=== PATIENT | female | born 2005 | race Caucasian/White ===

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

== ENCOUNTER 2024-07-03 14:40 | Outpatient (CLI) | payer OTHER, SELFPAY ==
--- NOTE | ~2024-07-03 | XR_ITS ---
EXAMINATION: XR chest 2V Exam Date/Time: 07/03/2024 14:43 TRACK HELPER HISTORY: R05.9 - Cough, unspecified Comparison: 12/09/2023. RESULT: Lines, tubes, and devices: None. Lungs and pleura: Clear. Cardiomediastinal silhouette: Stable. Other: No acute osseous or upper abdominal finding. IMPRESSION: No acute cardiopulmonary process. Reviewed, dictated and finalized at location K. K HELPER
== END 2024-07-03 14:41 | disposition home or self-care (01) ==
LOC: GOSHIMG 14:41
PROVIDERS: PCP Internal Medicine; Visit Provider Internal Medicine
DX: R05.9 Cough, unspecified (principal)
CPT/HCPCS: 71046

== ENCOUNTER 2024-07-03 14:58 | Outpatient (CLI) | payer OTHER, SELFPAY ==
[2024-07-03 18:56] LABS: Basophils Absolute Auto 0.1 K/mm3 (0.0-0.1); Basophils Percent Auto 0.8 % (0.2-1.2); Eosinophils Absolute Auto 0.1 K/mm3 (0-0.3); Eosinophils Percent Auto 1.9 % (0-4.4); Hematocrit 41.1 % (37.0-47.0); Hemoglobin 13.9 g/dL (12.0-15.0); Immature Granulocyte Absolute 0.01 K/mm3 (0.00-0.031); Immature Granulocyte Percent A 0.1 % (0-0.5); Lymphocytes Absolute Auto 1.92 K/mm3 (0.9-3.2); Lymphocytes Percent Auto 25.6 % (18.3-44.2); Mean Corpuscular HGB Conc 33.8 g/dl (32-36); Mean Corpuscular Hemoglobin 30.3 pg (26-34); Mean Corpuscular Volume 89.7 fl (80-100); Mean Platelet Volume 10.3 fl (7.4-10.4); Monocytes Absolute Auto 0.7 K/mm3 (0.1-0.6); Monocytes Percent Auto 9.2 % (2.6-8.5); Neutrophils Absolute Auto 4.7 K/mm3 (1.3-6.7); Neutrophils Percent Auto 62.4 % (45.5-73.1); Platelet Count Result 221 k/mm3 (150-375); Red Blood Count 4.58 M/mm3 (4.2-5.4); Red Cell Distribution Width 12.6 % (11.5-14.5); White Blood Count 7.5 K/mm3 (4.5-10.0)
[2024-07-03 19:22] LABS: Influenza A QL RT-PCR Negative (Negative); Influenza B QL RT-PCR Negative (Negative); RSV RNA, RT-PCR Negative (Negative); SARS-CoV-2 RNA PCR Negative (Negative)
== END 2024-07-03 14:59 | disposition home or self-care (01) ==
LOC: ANHGOSHLAB 15:00
PROVIDERS: PCP Internal Medicine; Visit Provider Internal Medicine
DX: R05.9 Cough, unspecified (principal); R50.9 Fever, unspecified
CPT/HCPCS: 36415; 85025; 87637

== ENCOUNTER 2024-12-19 10:16 | Outpatient (CLI) | payer OTHER, SELFPAY ==
--- OUTSIDE RECORDS SUMMARY | 2024-12-19 10:35 | XMS_ITS ---
Author Organization [facility] Address [address] [place] [address] Care Team Providers Care Stock Control Supervisor Name Role Phone Claire Rowan Primary Care Provider REASON FOR VISIT f/u chico Encounters Encounter Location Date Provider Diagnosis [facility] - Claire Rowan [address] [place] [address] 09/29/2024 Claire Rowan Plan Of Treatment No Information Progress Notes * Wilma WORLEYDOB:2005 (19 yo F)Acc No.[id number]:09/29/2024 Progress Notes Patient: Wilma ZHOU Provider: Nam Rowan MD :2005 A ge:19 Y S ex:Female Date:09/29/2024 Address:[address] [place] [address] Nam Gabriel [id number] Subjective: * Chief Complaints: * 1 . F/u chico. * Medical History: Objective: * Vitals: Assessment: Plan: * Treatment: * Billing Information: * Visit Code: * Procedure Codes: * Electronic signature of Geovanny Rowan MD on 12/19/2024 at 10:35 AM CDT Sign off status: Pending * Provider: Nam Rowan MD Date: 09/29/2024 Generated for Yasmeen pisano/Keren/eTransmitting on: 12/19/2024 10:35 AM CDT
--- OUTSIDE RECORDS SUMMARY | 2024-12-19 10:35 | XMS_ITS | Clinical Summary ---
Author Organization [facility] Address [address] [place] [address] Care Team Providers Care Portfolio Specialist Name Role Phone Iker Baum MD Primary Care Provider [phone] Source Comments [facility],non-owned Affiliates and Associated Physician Practices is amultiple site organization consisting of ambulatory clinics and hospital sitesin [place], [place], [place] and [place]. This disclosure is being madepursuant to the Care Everywhere program and may not contain all information available regarding this patient. Last updated 18.[facility] Allergies No known active allergies Medications * Be aware that medications may not be up to date on this document. Alwaysverify current medications with the patient. Vitamin D, Cholecalciferol , 1000 UNITS Take 1 Tab by mouth every 7 days Active rizatriptan, disintegrating, (MAXALT EXHAUSTER ENGINEER) 5 MG tablet Take 5 mg by mouth daily as needed - may repeat one time for Migraine No more than 30 mg in a 24 hour period. Active cetirizine (ZYRTEC) 10 MG tablet Take 10 mg by mouth once daily Active riboflavin 100 MG tablet Take 200 mg by mouth once daily Active ferrous sulfate 325 (65 FE) MG tabletIndicatio ns:Chronic daily headache Take 1 tablet by mouth 2 times daily with morning and evening meal Avoid dairy for 15-30 minutes. Can take Tums for abdominal discomfort. 60 tablet 2 8 Active amphetamine-dex troamphetamine XR 24hr (ADDERALL XR) 10 MG capsule Take 10 mg by mouth once daily 2 Active norethindrone (ORTHO MICRONOR; NOR-QD; JIHAN; DANIE; LEROY-BE; ABHISHEK; JOLIVETTE) 0.35 MG tablet Take 1 tablet by mouth once daily 2 Active Motegrity 2 MG tablet Take 1 (one) tablet by mouth once daily 2 Active Nurtec 75 MG tablet 2 Active DentaGel 1.1 % gel USE DIRECTED TO BRUSH TWICE A DAY 2 Active Active Problems Patient Care Coordination No te Formatting of this note migh t be different from the original. Do you have any cultural preferences or concerns? 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 1. Keep headache diary 2. Maintain active lifestyle - refer to PT to address neck muscle tightness, improve endurance, dizziness etc 3. Eat healthy diet, and do not skip meals 4. Drink plenty of water, and avoid caffeine regularly. 5. Sleep: 1. Maintain good sleep routine. 2. Avoid distractions at bedtime such as TV, computer. 3. Get at least 8-10 hours of sleep nightly 4. Start ferrous sulfate 325 mg twice daily 5. Trial of OTC Melatonin (1-3 mg) at bedtime as discussed 6. Do not use pain medication (such as Tylenol, Ibuprofen) more than 2-3 times/week in order to avoid medication overuse headaches 7. Can use Rizatriptan (Maxalt) 5 mg tabs for intense migrainous headache. May repeat in 2-4 hours if no relief. No more than 2 tabs in 24 hours. 8. Continue with Toprol as prescribed. Take regularly and as prescribed. 9. Can try supplements such as magnesium, continue other supplements. 10. Continue seeing therapist to address possible underlying anxiety. 11. Call in 4-6 weeks with update regarding headaches, sooner for concerns. Can also follow up with Dr. Jones - per parent/patient preference. Hypermobility syndrome 11/19/2016 Immunizations Immunization Administration Dates Next Due Covid Linkovery primary Monoval ent 12+ yr 0.3ml 08/31/2021 Covid Linkovery primary monoval ent 12+ yr 0.3mL Purple cap 08/10/2021 DTAP/HEP B/IPV 2004,2004,2004 DTAP/IPV 12/23/2009 DTaP VACCINE IM (6wk-6yrs) 01/06/2006 HEP A PEDS 2 DOSE 06/01/2007,06/07/2006 HEP B VACCINE 2004 HIB VACCINE 09/02/2005, 5,2004,07/15 MENINGOCOCCAL ACWY MENVEO 02/19/2016 MMR VACCINE 12/23/2009,09/02/2005 PNEUMOCOCCAL PCV7 CONJ, PEDS 09/02/2005, 2004,2004,07/15 TDAP, HISTORIC VACCINE 04/18/2015 VARICELLA 02/11/2016,12/23/2009 Family History Medical History Relation Name Comments Multiple Sclerosis Maternal Aunt Scleroderma Paternal Aunt Autoimmune Disease Neg Hx other deana n scleroderma Relation Name Status Comments Maternal Aunt Alive Paternal Aunt Alive Social History Tobacco Use Types Packs/Day Years Used Date Smoking Tobacco: Never Smokeless Tobacco: Never Tobacco Cessation:Counseling Given: No Comments No Sex and Gender Information Value Date Recorded Sex Assigned at Not on file Legal Sex Female 3:30 PM CDT Gender Identity Not on file Sexual Orientation Not on file Last Filed Vital Signs Vital Sign Reading Time Taken Comments Blood Pressure 112/70 06/16/2022 3:30 PM DEPUTY FELONY CLERK Pulse 88 06/16/2022 3:30 PM DEPUTY FELONY CLERK Temperature 36.7 C (98.1 F) 06/16/2017 3:13 PM DEPUTY FELONY CLERK Respiratory Rate 20 06/16/2022 3:30 PM DEPUTY FELONY CLERK Oxygen Saturation 98% 06/16/2017 3:13 PM DEPUTY FELONY CLERK Inhaled Oxygen Concentration - - Weight 68.9 kg (151 lb 14.4 oz) 06/16/2022 3:30 PM DEPUTY FELONY CLERK Height 172.4 cm (5' 7.87 ) 06/16/2022 3:30 PM CS T Body Mass Index 23.18 06/16/2022 3:30 PM DEPUTY FELONY CLERK Plan of Treatment Health Maintenance Due Date Last Done Comments HIV SCREENING 2019 HPV VACCINE (1 - 3-dose series) 2019 CHLAMYDIA/GONORRHEA SCREENING 2020 MENINGOCOCCAL (Group B) VACCINE SHARED DECISION-MAKING (1 of 2 - Standard) 2020 HEPATITIS C SCREENING 05/09/2022 COVID-19 VACCINE ( - season) 2024 08/31/2021, 08/10/2021 DEPRESSION SCREENING 08/09/2024 INFLUENZA VACCINE (Season Ended) 2025 DTAP/TDAP/TD VACCINES (7 - Td or Tdap) 04/18/2025 04/18/2015, 12/23/2009, 01/06/2006, Additional history exists ZOSTER VACCINE (1 of 2) 2054 HEPATITIS B VACCINE Completed 2004, 2004, 2004, Additional history exists HIB VACCINE Completed 09/02/2005, 01/2005, 2004, Additional history exists PNEUMOCOCCAL VACCINE Completed 09/02/2005, 2004, 2004, Additional history exists MENINGOCOCCAL GROUPS A/C/Y/W VACCINE Aged Out 02/19/2016 No longer eligible based on patient's age to complete this topic Insurance [facility] Care Teams Portfolio Specialist Relationship Specialty Start Date End Date Iker Baum MD [address] [place] [address] PCP - General Internal Medicine 01/20/22
--- OUTSIDE RECORDS SUMMARY | 2024-12-19 10:35 | XMS_ITS | Clinical Summary ---
Author Organization [facility] Address [facility] [place] [address] Care Team Providers Care Plant Floor Automation Manager Name Role Phone Iker Baum MD Primary Care Provider [phone] Allergies No known active allergies Medications topiramate (TOPAMAX) 50 mg tablet 9 Active montelukast (SINGULAIR) 10 mg tablet Take 10 mg by mouth daily 0 Active norethindrone (MICRONOR) 0.35 mg tabletIndications : Contraception Take one pill by mouth every day on time 84 tablet 3 0 Active metFORMIN XR (GLUCOPHAGE XR) 500 mg 24 hr tablet Take 500 mg by mouth 0 Active ergocalciferol (VITAMIN D) 50,000 unit capsule 1 Active dextroamphetamine -amphetamine XR (ADDERALL XR) 10 mg 24 hr capsule Take by mouth daily 0 Active cetirizine (ZyrTEC) 10 mg tablet Take 10 mg by mouth daily Active UNABLE TO FIND Take 1 each by mouth daily Med Name: Actalin Active FLUoxetine (PROzac) 20 mg tablet TAKE 1 TABLET BY MOUTH EVERY DAY 90 tablet 1 Active Additional Information Patient not taking.Reported on 09/07/2022 Motegrity 2 mg tablet TAKE 1 TABLET BY MOUTH EVERY DAY 30 tablet 2 Active DentaGeL 1.1 % gel 2 Active Nurtec ODT tablet,disintegra ting 2 Active sodium chloride 1 gram tabletIndications :Persistent postural-perceptu al dizziness Take 1 tablet (1 g total) by mouth 3 (three) times a day 90 tablet 11 3 Active Active Problems Problem Noted Date Diagnosed Date Palpitations 09/07/2022 Irritable bowel syndrome with constipation 02/14 Carbohydrate intolerance 10/11/2019 Overview (10/11/2019): Partial lactase deficiency Chronic migraine without aur a without status migrainosus, not intractable 05/08/2018 Persistent postural-perceptual dizziness 018 Vestibular migraine 05/03/2018 Functional dyspepsia 02/21/2018 COVID-19 Unvaccinated Overview (01/16/2021): As of 01/16/21 Resolved Problems Problem Noted Date Diagnosed Date Resolved Date Imbalance 05/03/2018 04/13/2019 Abdominal pain, epigastric 03/23/2018 1 Overview (03/23/2018): Added automatically from request for surgery [id number] Surgical History Surgery Date Site/Laterality Comments DENTAL SURGERY With Nitrous- pt was in bed all day and night after having the 1st time; the 2nd time the dentist gave less Nitrous and pt with improved tolerance. UPPER GASTROINTESTINAL ENDOSCOPY 03/09/2018 - 04/08/2018 Medical History Medical History Date Comments Chronic daily headache Last Asse ssment & Plan: Chronic daily headache (mixed tension type and some migrainous headaches), worsened by several lifestyle issues such as diet, sleep disturbances, prior concussion, neck muscle tightness, increased screen time, psychosocial stressors. 1. Keep headache diary 2. Maintain active lifestyle - refer to PT to address neck muscle tightness, improve endurance, dizziness etc 3. Eat Hypermobility arthralgia Livedo reticularis Menses, irregular Pes planus Lupus anticoagulant positive Dizziness Anxiety Adhd on ritalin Gallbladder disorder hydascan wi th 15% function Abdominal pain with bloating af ter eating Sleep disorder difficult sleepi ng Seasonal allergies Acne PCOS (polycystic ovarian syndrome) on Metformin per electrician yard COVID-19 Unvaccinated As of 01/16 Family History Medical History Relation Name Comments Colon polyps Father Diabetes Father Cancer Maternal Grandfather Diabetes Maternal Grandmother Hearing loss Maternal Grandmother Migraines Maternal Grandmother Thyroid disease Maternal Grandmother Hearing loss Mother Irritable bowel syndrome Mother Thyroid disease Mother Thyroid disease Mother's Sister Arthritis Other 1 Family history of Arthritis; Heart disease Other 2 Family history of Heart problems; Cancer Other 3 Family history of Cancer; Other Other 4 Family history of Kidney problems (stones); Stroke Other 5 Family history of Stroke; Diabetes type II Other 6 Family hist ory of Diabetes mellitus type 2; Diabetes Paternal Grandfather Heart disease Paternal Grandfather Thyroid disease Paternal Grandfather Relation Name Status Comments Father Maternal Grandfather Maternal Grandmother Mother Mother's Sister Other 1 Other 2 Other 3 Other 4 Other 5 Other 6 Paternal Grandfather Social History Tobacco Use Types Packs/Day Years Used Date Smoking Tobacco: Never Smokeless Tobacco: Never Alcohol Use Standard Drinks/Week Comments No 0 (1 standard drink = 0.6 oz pur e alcohol) Comments No Sex and Gender Information Value Date Recorded Sex Assigned at Not on file Legal Sex Female 11:29 PM OPTICS TECHNICAL OFFICER Gender Identity Female 02/18/2021 2:48 PM CDT Sexual Orientation Not on file History Length Weight Head Circum Date/Time Gestation Age D/C Weight APGARs Delivery Method Feeding 5 lb 5 oz (2.41 kg) 2004 36 wks Obstetrics History Para Term AB IAB SAB Ectopic Multiple Livin g Live Births 0 0 0 0 0 0 0 0 0 0 0 Last Filed Vital Signs Vital Sign Reading Time Taken Comments Blood Pressure 125/81 09/07/2022 1:58 PM OPTICS TECHNICAL OFFICER Pulse 85 09/07/2022 1:58 PM OPTICS TECHNICAL OFFICER Temperature 36.5 C (97.7 F) 02/25/2021 8:14 AM CDT Respiratory Rate 16 01/20/2021 3:00 PM CDT Oxygen Saturation 98% 09/07/2022 1:58 PM OPTICS TECHNICAL OFFICER Inhaled Oxygen Concentration - - Weight 67.6 kg (149 lb) 09/07/2022 1:58 PM OPTICS TECHNICAL OFFICER Height 167.6 cm (5' 6 ) 09/07/2022 1:58 PM OPTICS TECHNICAL OFFICER Body Mass Index 24.05 09/07/2022 1:58 PM OPTICS TECHNICAL OFFICER Plan of Treatment Health Maintenance Due Date Last Done Comments Depression Screening 2004 Hepatitis C Screening 2004 HPV Vaccines (1 - 3-dose series) 2019 Meningococcal B Vaccine (1 o f 2 - Standard) 2020 Regular Well Visit/Exam 18-64 2022 Covid-19 Vaccine (3 - 2023-2 5 season) 2024 08/31/2021, 08/10/2021 Influenza Vaccine (#1) 2024 DTaP/Tdap/Td Vaccine (7 - Td or Tdap) 04/18/2025 04/18/2015, 12/23/2009, 01/06/2006, Additional history exists Hepatitis B Screening Completed 2004 , 2004, 2004, Additional history exists Pneumococcal vaccine <65 Completed 006, 2004, 2004, Additional history exists Varicella Vaccines Completed 02/11/2016, 12/23/2009 Meningococcal Vaccine Completed 02/18/2022, 016 Insurance [facility] [place] [address] [place] [address] [facility] [employer] Care Teams Plant Floor Automation Manager Relationship Specialty Start Date End Date Iker Baum MD [address] [place] [address] PCP - General Internal Medicine 09/01/19
--- OUTSIDE RECORDS SUMMARY | 2024-12-19 10:35 | XMS_ITS | Patient Health Record ---
Author Organization [facility] Address [address] [address] Care Team Providers Care Drum Builder Name Role Phone Claire Rowan Primary Care Provider Allergies Allergen (clinical drug ingredient) Drug/Non Drug Allergy documented on EMR Reaction Allergy Type Onset Date Status Fragrances Unknown Allergy Active Cats Unknown Allergy Active Dust Mite Mixed Allergen Ext Unknown Drug Allergy Active Results Component Value Reference Range Notes ACTH, PLASMA (Not yet review ed by provider) Interpretation: Performing Lab:ORTIZ, [facility], [address] [facility] , [place], [address] Bijan Gracia M.D.,PhD Notes/Report: FASTING:YES FASTING: YES THYROID PEROXIDASE ANTIBODIE S (Not yet reviewed by provider) Interpretation: Performing Lab:CB, [facility], [address] [place] [address], [address] [place] Notes/Report: FASTING:YES FASTING: YES THYROID PEROXIDASE ANTIBODIES 1 <9 IU/mL TESTOSTERONE, FREE (DIALYSIS ) AND TOTAL,MS (Not yet reviewed by provider) Interpretation: Performing Lab:Z3E, [facility], [address] [place] [address], [address], [place], [address] Nichelle Levy MD,PhD Notes/Report: FASTING:YES FASTING: YES TESTOSTERONE, TOTAL, MS 35 2-45 ng/dL For additional information, please refer to https://education.[employer].com/faq/XLR824 (This link is being provided for informational/educational purposes only.) (Note) This test was developed and its analytical performance characteristics have been determined by [employer]. It has not been cleared or approved by the FDA. This assay has been validated pursuant to the CLIA regulations and is used for clinical purposes. TESTOSTERONE, FREE 8 0.1-6.4 pg/mL (Note) This test was developed and its analytical performance characteristics have been determined by [employer]. It has not been cleared or approved by the FDA. This assay has been validated pursuant to the CLIA regulations and is used for clinical purposes. [facility] [address] [address],[address] [facility] [address] Nichelle Levy MD, PhD COMPREHENSIVE METAB[facility]IC [facility] Reviewed date:09/09/2024 05:35:28 PM Interpretation: Performing Lab:[facility], [address] [place], [address] Andie Burnett MD Notes/Report: FASTING:YES FASTING: YES VITAMIN D, 25-HYDROXY, LC/MS /MS Reviewed date:09/09/2024 05:35:28 PM Interpretation: Performing Lab:[facility], [address], [place], [address] Andie Burnett MD Notes/Report: FASTING:YES FASTING: YES T3, FREE Reviewed date:09/09/2024 05:35:28 PM Interpretation: Performing Lab:[facility], [address], [place], [address] Andie Burnett MD Notes/Report: FASTING:YES FASTING: YES CORTISOL, TOTAL Reviewed date:09/09/2024 05:35:28 PM Interpretation: Performing Lab:[facility], [address], [place], [address] Andie Burnett MD Notes/Report: FASTING:YES FASTING: YES DHEA SULFATE Reviewed date:09/09/2024 05:35:28 PM Interpretation: Performing Lab:[facility], [address], [place], [place], [address] Andie Burnett MD Notes/Report: FASTING:YES FASTING: YES FERRITIN Reviewed date:09/09/2024 05:35:28 PM Interpretation: Performing Lab:KS, [facility], [address], [place], [address] Andie Burnett MD Notes/Report: FASTING:YES FASTING: YES HEMOGLOBIN A1c Reviewed date:09/09/2024 05:35:28 PM Interpretation: Performing Lab[facility], [address] [place], [address] KarenArgenis Burnett Notes/Report: FASTING:YES FASTING: YES INSULIN Reviewed date:09/09/2024 05:35:28 PM Interpretation: Performing Lab:[facility], [address], [place], [address] Andie Burnett MD Notes/Report: FASTING:YES FASTING: YES MAGNESIUM Reviewed date:09/09/2024 05:35:28 PM Interpretation: Performing Lab:[facility], [address], [place], [address] Andie Burnett MD Notes/Report: FASTING:YES FASTING: YES CBC (INCLUDES DIFF/PLT) Reviewed date:09/09/2024 05:35:28 PM Interpretation: Performing Lab:[facility], [address], [place], [address] Andie Burnett MD Notes/Report: FASTING:YES FASTING: YES VITAMIN B12/FOLATE, SERUM PA GERARD Reviewed date:09/09/2024 05:35:28 PM Interpretation: Performing Lab:[facility], [address], [place], [address] Andie Burnett MD Notes/Report: FASTING:YES FASTING: YES IRON AND TOTAL IRON BINDING CAPACITY Reviewed date:09/09/2024 05:35:28 PM Interpretation: Performing Lab:[facility], [address], [place], [address] Andie Burnett MD Notes/Report: FASTING:YES FASTING: YES LIPID PANEL Reviewed date:09/09/2024 05:35:29 PM Interpretation: Performing Lab:[facility], [address], [place], [address] Andie Burnett MD Notes/Report: FASTING:YES FASTING: YES T4, FREE Reviewed date:09/09/2024 05:35:29 PM Interpretation: Performing Lab:[facility], [address] [facility], [place], [address] Andie Burnett MD Notes/Report: FASTING:YES FASTING: YES TSH Reviewed date:09/09/2024 05:35:29 PM Interpretation: Performing Lab:[facility], [address] [facility], [place], [address] Andie Burnett MD Notes/Report: FASTING:YES FASTING: YES DEXAMETHASONE (Not yet revie wed by provider) Interpretation: Performing Lab:[facility],, [address] [place], [address] Denisha Pinon MD,PhD,RAUL Notes/Report: DEXAMETHASONE 155 Reference Ranges for Dexamethasone: Baseline: Less than 20 ng/dL 1 mg dexamethasone overnight: 180-550 ng/dL (8:00-10:00 AM) This test was developed and its analytical performance characteristics have been determined by [employer]. It has not been cleared or approved by FDA. This assay has been validated pursuant to the CLIA regulations and is used for clinical purposes. CORTISOL, TOTAL (Not yet rev iewed by provider) Interpretation: Performing Lab:JORGE [facility], [address] [place] [address], [address] [place] Notes/Report: Reason For Referral No Information Medications Medication SIG (Take, Route, Fr equency, Duration) Notes Start Date End Date Status Adderall 5 MG 1 tablet Orally Twice a day Active Claritin 10 MG 1 tablet Orally Once a day Active Norethindrone 0.35 MG 1 tablet Orally Once a day Active dexAMETHasone 1 MG 1 tablet Orally at 1 0 pm night before 8 am cortisol for 1 days 08/25/2024 Active Problems Problem Type SNOMED Code ICD Code Onset Dates Problem Status W/U Status Risk Notes Problem Vitamin D deficiency (98062955) Vitamin D deficiency, unspecified (E55.9) Active confirmed Problem Obesity (447814943) Obesity, unspecified (E66.9) Active confirmed Problem Non-toxic goiter (411774918) Nontoxic goiter, unspecified (E04.9) Active confirmed Problem Polycystic ovary syndrome (disorder) (378638287) Polycystic ovarian syndrome (E28.2) Active confirmed Vital Signs Heart Rate 90 /min 08/25/2024 SpO2: 98% Blood pressure diastolic 75 mm Hg 08/25/2024 SpO 2: 98% Height 66 in 08/25/2024 SpO2: 98% Blood pressure systolic 128 mm Hg 08/25/2024 SpO2 : 98% Weight 172.6 lbs 08/25/2024 SpO2: 98% BMI 27.86 kg/m2 08/25/2024 SpO2: 98% Encounters Encounter Location Date Provider Diagnosis [facility] [place] [address] [place] [address] 08/25/2024 [place] [facility] Polycystic ovarian syndrome E28.2 ; Abnormal weight gain R63.5 ; Overweight E66.3 ; Vitamin D deficiency, unspecified E55.9 ; Encounter for screening for lipoid disorders Z13.220 ; Other fatigue R53.83 ; Nontoxic goiter, unspecified E04.9 ; Obesity, unspecified E66.9 and Dietary counseling and surveillance Z71.3 [facility] [employer] [address] [place] [address] 09/29/2024 Claire Rowan Assessments Encounter Date Diagnosis (ICD Code) Assessment Notes Treatment Notes Treatment Clinical Notes Section Notes 08/25/2024 Abnormal weight gain (ICD-10 - R63.5) 08/25/2024 Polycystic ovarian syndrome (ICD-10 - E28.2) 08/25/2024 Overweight (ICD-10 - E66.3) 08/25/2024 Vitamin D deficiency, unspecified (ICD-10 - E55.9) 08/25/2024 Encounter for screening for lipoid disorders (ICD-10 - Z13.220) 08/25/2024 Other fatigue (ICD-10 - R53.83) 08/25/2024 Nontoxic goiter, unspecified (ICD-10 - E04.9) 08/25/2024 Obesity, unspecified (ICD-10 - E66.9) 08/25/2024 Dietary counseling and surveillance (ICD-10 - Z71.3) 08/25/2024 Other Assessment and Plan: Polycystic Ovary Syndrome (PCOS)Continue norethindrone as currently prescribedOrder fasting hormone panel to assess hormonal imbalancesCheck insulin levels given history of high insulin and weight gainDiscuss potential iodine supplementation (300 micrograms) pending lab resultsConsider recommending Purely Holistic supplement from [employer] (soy-free, GMO-free, [id number]) based on lab results Suspected HypercortisolismOrder dexamethasone suppression test to evaluate cortisol levelsInstruct patient to take dexamethasone at 10 PM and complete lab work the following morning, providing written instructions for the testEvaluate cortisol levels post-test to confirm diagnosis Sleep DisturbancePlan to reassess sleep hygiene after cortisol evaluation, considering chronic sleep issues Anxiety and DepressionReassess mental health status after cortisol evaluationCheck B12, Vitamin D, iron, and ferritin levels to identify potential causes of fatigue and vitamin deficiencies Gallbladder DiseaseSchedule follow-up with surgeon in two weeks to discuss gallbladder ejection fraction of 4%Provide Autoimmune Protocol (AIP) diet information and recommend healthy fats like avocados and pistachiosAdvise avoidance of pork, brisket, and fatty foods to manage symptoms Chronic SinusitisNo specific plan discussed; continue monitoring symptoms GastritisNo specific plan discussed; continue monitoring symptoms Thyroid MonitoringOrder comprehensive thyroid panel and check serum iodine levels due to family history and potential iodine deficiencySchedule thyroid ultrasound [facility] to [facility] for heterogeneity and inflammation Follow-up:Schedule a follow-up appointment to review lab results and assess the response to interventionsEncourage patient to contact the clinic if any new or worsening symptoms occur Spent 15 minutes preventative counseling patient on dietary recommendations and changes in setting of hyperglycemia- need to restrict refined sugars and processed foods and incorporate up to 150 minutes of moderate level activity weekly. Spent 45 minutes preparing to see the patient (ex review of tests/chart), obtaining and / or reviewing separately obtained history, performing a medically appropriate examination and/or evaluation, counseling and educating the patient/family/caregiver, ordering medications, tests, or procedures, referring and communicating with other health healthcare prof, documenting clinical information in the electronic or other health record, independently interpreting results and communicating results to the patient/family/caregiver and care coordinating patient plan. Patient alert and oriented x 4 and aware of discussion noted above and in agreeance to plan in management of PCOS/weight gain, concern for hypercortisolism, obesity, fatigue, screening for lipids and vit D def. Plan Of Treatment Pending Test Test Name Order Date Ultrasound thyroid 08/25/2024 ACTH, PLASMA 09/08/2024 DEXAMETHASONE 09/13/2024 CORTISOL, TOTAL 09/13/2024 THYROID PEROXIDASE ANTIBODIES 09/08/2024 TESTOSTERONE, FREE (DIALYSIS) AND TOTAL, MS 09/08/2024 Insurance Providers Payer Name Payer Address Payer Phone Subscriber Number Group Number Insured Name Patient Relationship to Insured Coverage Start Date Coverage End Date [facility] [address] [place] [address] [id number] Wilma Encarnacion Self - patient is the insured Medical (General) History Medical History History ICD Code PCOS MCAS
--- OUTSIDE RECORDS SUMMARY | 2024-12-19 10:35 | XMS_ITS | Clinical Summary ---
Author Organization [facility] Address [address] [place] [phone] Phone Care Team Providers Care Clinical Staff Pharmacist Name Role Phone Iker Baum MD Primary Care Provider + Allergies Active Allergy Reactions Criticality Noted Date Comments Ciprofloxacin Other (See Comments) High 09/28/2022 CORE DRILL OPERATOR DOES NOT WANT PT TO TAKE THIS CLASS OF DRUGS Medications dextroamphetami ne-amphetamine (ADDERALL) 10 mg tablet Take 10 mg by mouth daily. In the morning Active NORETHINDRONE AC-ETH ESTRADIOL ORAL Take by mouth. At bedtime Active hyoscyamine sulfate 0.125 mg tablet Take 1 Tablet (0.125 mg) by mouth 4 times daily as needed for abdomnial pain. 14 Tablet 03/15/2023 7:41 PM CDT 3 Active ondansetron (ZOFRAN ODT) 4 mg Tablet, Rapid Dissolve Take 1 Tablet (4 mg) by mouth every 6 hours as needed for nausea and vomiting. 14 Tablet 03/15/2023 7:41 PM CDT 3 Active dextroamphetami ne-amphetamine (ADDERALL) 5 mg tablet Take 1 Tablet (5 mg) by mouth 2 times daily. Administer at least 4-6 hours apart. Max Daily Amount: 10 mg 60 Tablet 4 Active dextroamphetami ne-amphetamine (ADDERALL) 5 mg tablet Take 1 tablet (5 mg) by mouth 2 times daily; administer doses at least 4-6 hours apart. Max Daily Amount: 10 mg 60 Tablet 08/05/2024 4:42 PM CARBON PASTE MIXER OPERATOR Active dextroamphetami ne-amphetamine (ADDERALL) 5 mg tablet Take 1 Tablet (5 mg) by mouth twice daily; administer doses at least 4-6 hours apart. 60 Tablet 11/02/2024 7:01 PM CDT Active Active Problems Problem Noted Date Diagnosed Date Tingling in extremities 01/28/2022 Myofascial pain syndrome 01/28/2022 Occipital neuralgia of left side 01/28/2022 Moderate depressive disorder 01/28/2022 Encounters Date Type Department Care Team Description 11/21/2024 External Device Data [facility]CTION Provider, Abstract 10/25/2024 External Device Data [facility] Provider, Abstract 10/25/2024 External Device Data [facility] Provider, Abstract 10/14/2024 External Device Data [facility] Provider, Abstract 10/13/2024 External Device Data [facility] Provider, Abstract 10/10/2024 External Device Data [facility] Provider, Abstract 09/26/2024 External Device Data [facility] Provider, Abstract from Last 3 Months Family History Medical History Relation Name Comments Other Other Multiple sclero sis, patient's aunt. Relation Name Status Comments Other Social History Tobacco Use Types Packs/Day Years Used Date Smoking Tobacco: Never Smokeless Tobacco: Never Comments Unknown Sex and Gender Information Value Date Recorded Sex Assigned at Not on file Legal Sex Female 3:18 AM CARBON PASTE MIXER OPERATOR Gender Identity Not on file Sexual Orientation Not on file Last Filed Vital Signs Vital Sign Reading Time Taken Comments Blood Pressure 94/66 06/11/2021 2:13 PM CDT Pulse - - Temperature 37.6 C (99.6 F) 06/11/2021 2:13 PM CDT Respiratory Rate - - Oxygen Saturation - - Inhaled Oxygen Concentration - - Weight 67 kg (147 lb 9.6 oz) 06/11/2021 2:13 PM CDT Height 167.6 cm (5' 6 ) 06/11/2021 2:13 PM CDT Body Mass Index 23.82 06/11/2021 2:13 PM CDT Plan of Treatment Health Maintenance Due Date Last Done Comments CHLAMYDIA SCREENING (ANNUAL) 11-24 YEARS 2015 HPV VACCINES (1 - 3-dose series) 2019 INFLUENZA VACCINE (#1) 2024 COVID-19 Vaccine (3 2023-2 5 season) 2024 08/31/2021, 08/10/2021 DTAP/TDAP/TD VACCINES (7 - T d or Tdap) 04/18/2025 04/18/2015, 12/23/2009, 01/06/2006, Additional history exists HEPATITIS B VACCINES Completed 2004, 2004, 2004, Additional history exists Insurance [facility] [id number] RX [facility] [email or web address] [id number] Care Teams Clinical Staff Pharmacist Relationship Specialty Start Date End Date Iker Baum MD [address] [place] [id number] PCP - General Internal Medicine 05/26/21
--- OUTSIDE RECORDS SUMMARY | 2024-12-19 10:36 | XMS_ITS | Referral Summary ---
Author Organization [facility] Address Formerly [facility] [place] [address] Care Team Providers Care Sociology Instructor Name Role Phone Iker Baum MD Primary Care Provider [phone] Allergies No known active allergies Medications topiramate [...] (03/23/2018): Added automatically from request for surgery [id number] Social History Tobacco Use Types Packs/Day Years Used Date Smoking Tobacco: Never Smokeless Tobacco: Never Alcohol Use Standard Drinks/Week Comments No 0 (1 standard drink = 0.6 oz pur e alcohol) Comments No Sex and Gender Information Value Date Recorded Sex Assigned at Not on file Legal Sex Female 11:29 PM TOWER EQUIPMENT INSTALLER Gender Identity Female 02/18/2021 2:48 PM CDT Sexual Orientation Not on file Last Filed Vital Signs Vital Sign Reading Time Taken Comments Blood Pressure 125/81 09/07/2022 1:58 PM TOWER EQUIPMENT INSTALLER Pulse 85 09/07/2022 1:58 PM TOWER EQUIPMENT INSTALLER Temperature 36.5 C (97.7 F) 02/25/2021 8:14 AM CDT Respiratory Rate 16 01/20/2021 3:00 PM CDT Oxygen Saturation 98% 09/07/2022 1:58 PM TOWER EQUIPMENT INSTALLER Inhaled Oxygen Concentration - - Weight 67.6 kg (149 lb) 09/07/2022 1:58 PM TOWER EQUIPMENT INSTALLER Height 167.6 cm (5' 6 ) 09/07/2022 1:58 PM TOWER EQUIPMENT INSTALLER Body Mass Index 24.05 09/07/2022 1:58 PM TOWER EQUIPMENT INSTALLER Plan of Treatment Not on file Insurance [facility] Care Teams Sociology Instructor Relationship Specialty Start Date End Date Iker Baum MD [address] [place] [address] PCP - General Internal Medicine 09/01/19
--- OUTSIDE RECORDS SUMMARY | 2024-12-19 10:36 | XMS_ITS | Encounter Summary ---
Author Organization [facility] Address [address] [place] [address] Care Team Providers Care Bid Manager Name Role Phone Iker Baum MD Primary Care Provider + Encounter Details Date Type Department Care Team (Late st Contact Info) Description 2004 Outpatient Historical [facility] Department of Peds at [facility] [address] [place] [id number] Mariangel Moon MD [address] [facility] [address] [address] Social History Tobacco Use Types Packs/Day Years Used Date Smoking Tobacco: Never Assessed Comments Unknown Sex and Gender Information Value Date Recorded Sex Assigned at Not on file 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
--- OUTSIDE RECORDS SUMMARY | 2024-12-19 10:36 | XMS_ITS | Encounter Summary ---
Author Organization [facility] Address [address] [place] [address] Care Team Providers Care Slitter Creaser Slotter Helper Name Role Phone Iker Baum MD Primary Care Provider + Encounter Details Date Type Department Care Team (Late st Contact Info) Description 2004 Outpatient Historical [facility] Pediatrics - [facility] [address] [facility] [address] [address] Char Campo MD NO ADDRESS ON FILE Social History Tobacco Use Types Packs/Day Years Used Date Smoking Tobacco: Never Assessed Comments Unknown Sex and Gender Information Value Date Recorded Sex Assigned at Not on file 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
--- OUTSIDE RECORDS SUMMARY | 2024-12-19 10:36 | XMS_ITS | Encounter Summary ---
Author Organization [facility] Address 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
--- OUTSIDE RECORDS SUMMARY | 2024-12-19 10:36 | XMS_ITS ---
Author Organization [facility] Address [address] [facility] [place] [address] Care Team Providers Care Architecture Technician Name Role Phone Claire Rowan Primary Care Provider Allergies Allergen (clinical drug ingredient) Drug/Non Drug Allergy documented on EMR Reaction Allergy Type Onset Date Status Fragrances Unknown Allergy Active Cats Unknown Allergy Active Dust Mite Mixed Allergen Ext Unknown Drug Allergy Active REASON FOR VISIT est care chico Medications Medication SIG (Take, Route, Fr equency, [...] Problem Status W/U Status Risk Notes Problem Polycystic ovarian syndrome (E28.2) Active confirmed Problem Vitamin D deficiency (91859791) Vitamin D deficiency, unspecified (E55.9) Active confirmed Problem Non-toxic goiter (693821606) Nontoxic goiter, unspecified (E04.9) Active confirmed Problem Obesity (787839452) Obesity, unspecified (E66.9) Active confirmed Vital Signs Blood pressure systolic 128 mm Hg 08/25/19 25 Blood pressure diastolic 75 mm Hg 025 Heart Rate 90 /min 08/25/2024 Height 66 in 08/25/2024 Weight 172.6 lbs 08/25/2024 BMI 27.86 kg/m2 08/25/2024 SpO2: 98% Encounters Encounter Location Date Provider Diagnosis [facility] - Claire Rowan [address] [place] [address] 08/25/2024 Claire Rowan Polycystic ovarian syndrome E28.2 ; Abnormal weight gain R63.5 ; Overweight E66.3 ; Vitamin D deficiency, unspecified E55.9 ; Encounter for screening for lipoid disorders Z13.220 ; Other fatigue R53.83 ; Nontoxic goiter, unspecified E04.9 ; Obesity, unspecified E66.9 and Dietary counseling and surveillance Z71.3 Assessments Encounter Date Diagnosis (ICD Code) Assessment Notes Treatment Notes Treatment Clinical Notes Section Notes 08/25/2024 Polycystic ovarian syndrome (ICD-10 - E28.2) 08/25/2024 Abnormal weight gain (ICD-10 - R63.5) 08/25/2024 Overweight (ICD-10 - E66.3) 08/25/2024 Vitamin [...] lab resultsConsider recommending Purely Holistic supplement from [employer] (soy-free, GMO-free, [id number]) based on lab results Suspected HypercortisolismOrder dexamethasone [...] and potential iodine deficiencySchedule thyroid ultrasound at [facility] to check for heterogeneity and inflammation Follow-up:Schedule [...] procedures, referring and communicating with other health primary care pediatrician, documenting clinical information in the electronic or other health record, independently interpreting results and communicating results to the patient/family/caregiver and care coordinating patient plan. Patient alert and oriented x 4 and aware of discussion noted above and in agreeance to plan in management of PCOS/weight gain, concern for hypercortisolism, obesity, fatigue, screening for lipids and vit D def. Plan Of Treatment Medication Medication Name Sig Start Date Stop Date Notes dexAMETHasone 1 MG 1 tablet Orally at 1 0 pm night before 8 am cortisol for 1 days 08/25/2024 Treatment Notes Assessment Notes Other Assessment and Plan: Polycystic Ovary Syndrome (PCOS)Continue norethindrone as currently prescribedOrder fasting hormone panel to assess hormonal imbalancesCheck insulin levels given history of high insulin and weight gainDiscuss potential iodine supplementation (300 micrograms) pending lab resultsConsider recommending Purely Holistic supplement from [employer] (soy-free, GMO-free, [id number]) based on lab results Suspected HypercortisolismOrder dexamethasone [...] and potential iodine deficiencySchedule thyroid ultrasound at [facility] to check for heterogeneity and inflammation Follow-up:Schedule [...] procedures, referring and communicating with other health primary care pediatrician, documenting clinical information in the electronic or other health record, independently interpreting results and communicating results to the patient/family/caregiver and care coordinating patient plan. Patient alert and oriented x 4 and aware of discussion noted above and in agreeance to plan in management of PCOS/weight gain, concern for hypercortisolism, obesity, fatigue, screening for lipids and vit D def. Pending Test Test Name Order Date Ultrasound thyroid 08/25/2024 Next Appt Details Follow Up: 6 Weeks, Reason: labwork Progress Notes * Wilma WORLEYDOB:2005 (19 yo F)Acc No.[id number]:08/25/2024 Progress Notes Patient: Wilma ZHOU Provider: Nam Rowan MD :2005 A ge:19 Y S ex:Female Date:08/25/2024 Address:[address] [place] [address] , [place], [id number] Subjective: * Chief Complaints: * 1 . Est care chico. * HPI: I nterval Hx: 19 yo female comes in to establish care in management of PCOS, weight gain and fatigue. Wilma, a 19-year-old female with PCOS, presented with irregular menstrual cycles, chronic insomnia, increased anxiety and depression, significant weight gain, and prolonged healing of bruises. She also reported persistent sinus issues and digestive gastritis. Recent tests indicated a gallbladder ejection fraction of 4%, with a normal ultrasound. Dr. Claire Rowan plans to evaluate her hormone and cortisol levels, reassess her sleep hygiene, and monitor her thyroid function. 25-year-old female with PCOS on norethindrone presents with irregular menstrual cycles. Patient reports experiencing random periods every 3-4 months over the past year, with no menses in the last couple of months. Patient complains of chronic insomnia, sleeping only 3 hours per night despite going to bed at a reasonable time. She has difficulty falling asleep and staying asleep, even with the use of Nyquil. This sleep disturbance is longstanding. Patient reports increased anxiety and depression recently, without worsening of sleep. She experiences fatigue, feeling tired by 5:30 or 6 PM daily. Patient also notes difficulty concentrating during classes. Patient reports significant weight gain, from 128 pounds last year to 176 pounds currently. She also mentions prolonged healing of bruises and persistent sinus issues. Patient has a history of digestive gastritis, with pain after meals, particularly exacerbated by heavy or fatty foods. Medical History - PCOS (Polycystic Ovary Syndrome) - Anxiety - Depression - Gastritis Current and Past Medications and Supplements - Norethindrone - Nyquil Social History - Occupation: student, attends classes - Education: currently in school, likely college or university - Exercise habits: sometimes goes to the gym early before class - Diet: avoids pork, brisket, and fatty foods; uses Celtic sea salt instead of iodized salt - Sleep: sleeps about 3 hours a night, has difficulty falling and staying asleep Review of Systems - Reproductive: Random periods every 3-4 months, but none in last couple months - Sleep: Sleeps about 3 hours a night, difficulty falling asleep and staying asleep - Psychiatric: Increased anxiety and depression lately - General: Always tired by 5:30 or 6 PM, difficulty concentrating - Integumentary: Bruises take a long time to heal - Respiratory: Always has some kind of sinus issue - Gastrointestinal: Digestive gastritis, pain after eating heavy or fatty foods. * ROS: C ONSTITUTIONAL: no w eight gain. n o l oss of appetite. n o?fever. n o w eakness. n o w eight loss. n o n ight sweats. n o n ausea. n o v isual changes. n o c hange in sleep patterns. h +p reviewed y es, R OS form reviewed with patient see scan for detail. n o c hange in activity capacity.? D ERMATOLOGY: no r neal. n o c hange in color of moles. n o?lumps. n o d ry or sensitive skin. n o h shannon. n o o nick skin. n o?acne. n o m oles-irregular. n o m oles-change/new. n o b oils. n o dandruff. n o e xcessive body odor. n o p soriasis. n o f ungal infections. n o n ail problems. n o r edness/inflammation. n o a thlete's foot. n o s kin cancer. n o e czema. E NDOCRINOLOGY: no f atigue. n o e xcessive sweating. n o e xcessive thirst. n o e xcessive urination. n o w eight loss. n o s leep disturbance. n o c old intolerance. n o h eat intolerence. n o t hyroid disease. n o i ncreased loss of hair. n o h x of borderline diabetes. n o d iabetes. n o a bdormal body hair. n o r heumatism. n o c hanges in skin texture.? N EUROLOGY: headache y es. n o t ingling numbness. n o s eizures. n o i nsomnia. m stacie loss y es. n o d izziness. n o g ait abnormality. n o c hange in sensation anywhere on body. n o l ocalized weakness or numbness. n o b lackouts or near blackouts. n o m igraine. n o t remors.?no f ainting spells. n o h ead injury. n o s troke. O PTHALMOLOGY: no d iminished vision. n o e ye irritation. n o?drainage from eyes. n o b lurring of vision. n o s easonal eye sx. n o?dander related eye sx. n o l oss of vision. n o c ataracts. n o g lasses/contacts. n o g laucoma. n o d etached retina. n o m acular degeneration.?no e ye redness. R ESPIRATORY: no s hortness of breath. n o c hest pain. n o?wheezing. n o a sthma. n o b reathlessness when lying flat. n o p rolonged cough. n o f requent infections (bronchitis). n o e mphysema. n o c hest congestion. n o s leep apnea. A LLERGY: no r unny nose. s cratchy throat y es. i tchy eyes y es. n o e ar fullness. n o s inus congestion. s tuffy nose y es.?watery eyes y es. n o s easonal allergies. n o h ay fever. n o a llergy. n o p olyps. s neezing y es. H EMATOLOGY/LYMPH: no s wollen glands. n o f atigue. n o l oss of appetite. n o e asy bruising. n o e asy bleeding. n o a nemia. ? U ROLOGY: no d ifficulty urinating. n o b lood in urine. n o u rinary urgency. n o f requent urination. u rinary incontinence y es, r etention. n o v oiding dysfunction. n o v ulvodynia. n o d ysparaunia. n o r ecurrent UTI. n o w eak flow. n o d ribbling after urination. n o f requent bladder infections. n o k idney stone. n o k idney disease. n o u rine hesitancy. n o p ainful urination. N UTRITION: greater than body requirmemts y es. L ess than body requirements y es. a ppropriate / adequate y es, y es. E NT: no c old. n o c ough. n o c oughing blood.?no n ose bleed. n o h earing loss. n o c hange in voice. n o s ore throat. n o r inging in ears. n o s noring. n o e ar pain. n o r unny nose. n o w atery eyes. n o s inus infection. n o e ar infection. n o facial pain. n o h oarseness. n o g oiter. n o g um problems. n o?postnasal drip. n o f requent nosebleeds. C ARDIOLOGY: chest pain y es, t ightness. n o p alpitations.?no l eg swelling. d izziness y es. n o s hortness of breath. n o v aricose veins. n o l eg cramps. n o c old hands or feet. n o h igh blood pressure. n o a nkle swelling. n o c ardiac catheterization. n o h eart attacks. n o a ngina. n o m urmurs. n o l ow blood pressure. n o l eg pain that resolves w/rest. n o p urple fingers or lips. n o i rregular heart rate. n o c ongenital heart defects. n o d izziness when standing up quickly. n o a wakening at night short of breath. G ASTROENTEROLOGY: no n ausea. h eartburn y es. n o s tool incontinence. n o r eflux. a bdominal pain y es. n o i ndigestion. n o h emorrhoids. n o h iatal hernia. n o u lcers. n o a nal fissures. n o?hepatitis. n o g allstones. n o r ed blood after bowel movements. n o v omiting. n o b loating/belching. n o d ifficulty swallowing. d iarrhea y es.?constipation y es. n o c hange in bowel habits. n o b lood in stool. ? M USCULOSKELETAL: joint swelling y es, k nee. j oint pain y es,?knee. n o l eg cramps. n o j oint stiffness. n o a rthritis. n o?back pain. n o m uscle aches. n o m orning stiffness. n o t endinitis.?no n agatha pain. n o b ursitis. n o b one marrow biopsy. n o g out. a ctivity intolerance w eakness. n o f racture. P SYCHOLOGY: no h igh stress level. d epression y es. s leep disturbances y es. n o r tim sx worse with stress. n o s uicidal ideation. n o e ating disorder. n o m ental or physical abuse. a nxiety y es. n o h eadaches. d isease state y es. F EMALE REPRODUCTIVE: no h eavy periods. n o d ysparaunia. n o s exually active. n o p remenstrual syndrome. n o d ysmenorrhea. n o i nfertility. n o f requent yeast infections. n o v aginal itching. n o i ntermenstrual bleeding. n o p ost coital bleeding. n o p ostmenopausal bleeding. n o p elvic pain. n o m enstral cycle. n o v aginal discharge. n o v aginal dryness. n o o varian cysts. n o f ibroids. n o d ischarge from breast. n o abn. bleeding between cycles. n o p ostmenopausal symptoms. n o l oss of sexual interest. n o p ainful sexual intercourse. n o e ndometriosis. n o v aginal warts. n o a bnormal pap. n o i rregular periods. n o a bnormal vaginal discharge. n o h ot flashes. * Medical History: P COS, MCAS. * Surgical History: D enies Past Surgical History. * Hospitalization/Major Diagno stic Procedure: D enies Past Hospitalization. * Family History: diabetes, high cholesterol, hypertension, heart problems, thyroid problems, osteoporosis, cancer. * Social History: S moking: no . R ecreational drug use: no. Alcohol: no. caffeine: yes. * Medications: T aking Norethindrone 0.35 MG Tablet 1 tablet Orally Once a day , Taking Claritin(Loratadine) 10 MG Tablet 1 tablet Orally Once a day , Taking Adderall(Amphetamine-Dextroamphetamine) 5 MG Tablet 1 tablet Orally Twice a day , Medication List reviewed and reconciled with the patient * Allergies: F ragrances, Dust Mite Mixed Allergen Ext, Cats. Objective: * Vitals: H R: 90, BP: 128/75, Ht: 66, Wt: 172.6, BMI: 27.86. SpO2: 98%. * Examination: G eneral Examination: General n ormal, NAD, well nourished and hydrated, pleasant. Neck, thyroid : s upple. Heart: B P wnl, RSR, no murmurs. Lungs: n ormal, respirations easy with conversation and ambulation. Abdomen: n ormal, round, non-distended. Neurologic exam: u nremarkable. Extremities: u nremarkable. Peripheral pulses: n ormal (2+) bilaterally . Psych: o rientation to person, place & situation, appropriate judgment noted. Assessment: * Assessment: 1. P olycystic ovarian syndrome - E28.2 (Primary) 2 . A bnormal weight gain - R63.5 3 . O verweight - E66.3 4 . V itamin D deficiency, unspecified - E55.9 5 . E ncounter for screening for lipoid disorders - Z13.220 6. O ther fatigue - R53.83 7 . N ontoxic goiter, unspecified - E04.9 8 . O besity, unspecified - E66.9 9 . D ietary counseling and surveillance - Z71.3 Plan: * Treatment: 2. N ontoxic goiter, unspecified I maging: Ultrasound thyroid 3. O thers Notes:Assessment and Plan: Polycystic Ovary Syndrome (PCOS)Continue norethindrone as currently prescribedOrder fasting hormone panel to assess hormonal imbalancesCheck insulin levels given history of high insulin and weight gainDiscuss potential iodine supplementation (300 micrograms) pending lab resultsConsider recommending Purely Holistic supplement from [employer] (soy-free, GMO-free, [id number]) based on lab results Suspected HypercortisolismOrder dexamethasone [...] and potential iodine deficiencySchedule thyroid ultrasound at [facility] to check for heterogeneity and inflammation Follow-up:Schedule [...] procedures, referring and communicating with other health primary care pediatrician, documenting clinical information in the electronic or other health record, independently interpreting results and communicating results to the patient/family/caregiver and care coordinating patient plan. Patient alert and oriented x 4 and aware of discussion noted above and in agreeance to plan in management of PCOS/weight gain, concern for hypercortisolism, obesity, fatigue, screening for lipids and vit D def. * Procedure Codes: 9 9401 P/M SALES DEVELOPMENT REPRESENTATIVE, INDIV 15 MIN * Follow Up: 6 Weeks (Reason: labwork) * Billing Information: * Visit Code: 94023 Office Visit, New Pt., Level 4. * Procedure Codes: 03163 P/M SALES DEVELOPMENT REPRESENTATIVE, INDIV 15 MIN. * AL PRESIDENT Sign off status: Completed true * Provider: Nam Rowan MD Date: 0 08/25/2024 Generated for Yasmeen pisano/Keren/eTransmitting on: 0 12/19/2024 10:35 AM CDT History and Physical Notes * HPI (History of Present Illness) Category Sub-Category Detail Notes Category Not es Interval Hx 19 yo female comes in to establish care in management of PCOS, weight gain and fatigue. Wilma, a 19-year-old female with PCOS, presented with irregular menstrual cycles, chronic insomnia, increased anxiety and depression, significant weight gain, and prolonged healing of bruises. She also reported persistent sinus issues and digestive gastritis. Recent tests indicated a gallbladder ejection fraction of 4%, with a normal ultrasound. Dr. Claire Rowan plans to evaluate her hormone and cortisol levels, reassess her sleep hygiene, and monitor her thyroid function. 25-year-old female with PCOS on norethindrone presents with irregular menstrual cycles. Patient reports experiencing random periods every 3-4 months over the past year, with no menses in the last couple of months. Patient complains of chronic insomnia, sleeping only 3 hours per night despite going to bed at a reasonable time. She has difficulty falling asleep and staying asleep, even with the use of Nyquil. This sleep disturbance is longstanding. Patient reports increased anxiety and depression recently, without worsening of sleep. She experiences fatigue, feeling tired by 5:30 or 6 PM daily. Patient also notes difficulty concentrating during classes. Patient reports significant weight gain, from 128 pounds last year to 176 pounds currently. She also mentions prolonged healing of bruises and persistent sinus issues. Patient has a history of digestive gastritis, with pain after meals, particularly exacerbated by heavy or fatty foods. Medical History - PCOS (Polycystic Ovary Syndrome) - Anxiety - Depression - Gastritis Current and Past Medications and Supplements - Norethindrone - Nyquil Social History - Occupation: student, attends classes - Education: currently in school, likely college or university - Exercise habits: sometimes goes to the gym early before class - Diet: avoids pork, brisket, and fatty foods; uses Celtic sea salt instead of iodized salt - Sleep: sleeps about 3 hours a night, has difficulty falling and staying asleep Review of Systems - Reproductive: Random periods every 3-4 months, but none in last couple months - Sleep: Sleeps about 3 hours a night, difficulty falling asleep and staying asleep - Psychiatric: Increased anxiety and depression lately - General: Always tired by 5:30 or 6 PM, difficulty concentrating - Integumentary: Bruises take a long time to heal - Respiratory: Always has some kind of sinus issue - Gastrointestinal: Digestive gastritis, pain after eating heavy or fatty foods Examination Category Sub-Category Detail Notes Category Not es General Examination Neck, thyroid : supple Heart: BP wnl, RSR, no murm urs Lungs: normal, respirations easy with conversation and ambulation Abdomen: normal, round, non-d istended Extremities: unremarkable General normal, NAD, well no urished and hydrated, pleasant Neurologic exam: unremarkable Peripheral pulses: normal (2+) bilatera lly Psych: orientation to perso n, place & situation, appropriate judgment noted
--- OUTSIDE RECORDS SUMMARY | 2024-12-19 10:36 | XMS_ITS | Encounter Summary ---
Author Organization [facility] Address [address] [place]: [place] [address] Care Team Providers Care Tax Specialist Name Role Phone Iker Baum MD Primary Care Provider + Encounter Details Date Type Department Care Team (Late st Contact Info) Description 2004 Inpatient Historical Char Campo MD NO ADDRESS ON FILE Sandi Rogers MD [address] [place] [id number] [facility] (Primary Dx) Social History Tobacco Use Types Packs/Day Years Used Date Smoking Tobacco: Never Assessed Comments Unknown Sex and Gender Information Value Date Recorded Sex Assigned at Not on file Legal Sex Female 3:18 AM [employer]OL [employer] Gender Identity Not on file Sexual Orientation Not on file documented as of this encounter Plan of Treatment Not on file documented as of this encounter Visit Diagnoses Diagnosis Twin, mate liveborn, born in hospital, delivered by delivery- Primary documented in this encounter Care Teams Tax Specialist Relationship Specialty Start Date End Date Iker Baum MD [address] [place] [id number] PCP - General Internal Medicine 05/26/21 documented as of this encounter
[2024-12-19 11:30] LABS: Alanine Aminotransferase 17 U/L (6-35); Albumin Level 4.9 g/dL (3.5-5.1); Alkaline Phosphatase 71 U/L (38-126); Amylase 57 U/L (30-110); Aspartate Amino Transferase 34 U/L (14-36); Bilirubin,Total 0.6 mg/dL (0.2-1.3); Lipase 34 U/L (23-300)
== END 2024-12-19 10:17 | disposition home or self-care (01) ==
LOC: ANHSURGERY 10:20
PROVIDERS: PCP Internal Medicine; Visit Provider Surgery
DX: K82.8 Other specified diseases of gallbladder (principal)
CPT/HCPCS: 36415; 80076; 82150; 83690

== ENCOUNTER 2024-12-25 01:47 | Day surgery (SDC) | payer OTHER, SELFPAY ==
[2024-12-14 10:56] VITALS: BMI 25.5
--- NOTE | 2024-12-14 11:03 | PC.NURSE ---
Report to the Outpatient Waiting Room, entrance under the green pavilion located off [facility], at time _1000_ on date _[id number]_. Planned Procedure Time: _1200_. Time changes happen often and if your time is changed the preop area will call you the afternoon before. - You and your visitor will be asked to self-screen and do not enter if you have any COVID symptoms. Please call surgeon if you need to reschedule. - A mask is optional within the hospital at this time. Patients may have clear liquids (water, carbonated beverages, clear teas, apple juice) until 3 hours prior to surgery with a maximum of 20 ounces. - No food from midnight until time of surgery and no smoking, or chewing tobacco (or any form of nicotine). No chewing gum, candy or mints. Take only the following medications with a SIP of water on the morning of surgery: __None___ DO NOT STOP ANY OF YOUR OTHER PRESCRIPTION MEDICATIONS PRIOR TO SURGERY EXCEPT THE FOLLOWING Hold all vitamins and supplements for 3 days per anesthesiologist. Medications to discontinue per physician Date to take last dose Please no make-up, nail albanian, hairspray, perfume, deodorant, or body powder the day of surgery. No jewelry (including any body piercings) or valuables the day of surgery, leave them at home. Please take a shower or bath the night before, or the morning of, surgery with an antibacterial soap. Wear comfortable, loose fitting clothing. - Jewelry must be removed prior to entering the operating room. Rings and piercings that are not removed may be cut off. - The hospital will not accept responsibility for valuables. - Please leave all valuables, including medications, at home the day of surgery. If you are going home after surgery, a licensed driver recruiter must drive you home. - NO public transportation without another adult if you receive anesthesia. - We recommend that an adult stay with you for 24 hours following discharge. - We also recommend that you do not drive, make important decision, drink alcoholic beverages, or take any drugs that were not prescribed by your health care provider for at least 24 hours after your discharge time. Follow any additional instructions given to you from your surgeon. Telephone instructions given to __Madison__and asked if any additional questions and then verbalized understanding. Patient advised to call surgeon office or pre surgery nurse liaison [phone] if any additional questions.
[2024-12-25] VITALS (10 sets, daily range): BP systolic 86–122; BP diastolic 55–79; PULSE 50–83; RESP 11–16; TEMP 36.1–36.8; O2SAT 97–100
--- OUTSIDE RECORDS SUMMARY | 2024-12-25 01:50 | XMS_ITS ---
Author Organization [facility] Address [address] [place] [address] Care Team Providers Care Test Engine Operator Name Role Phone Claire Rowan Primary Care Provider [phone] REASON FOR VISIT f/u chico Encounters Encounter Location Date Provider Diagnosis [facility] - Claire Rowan [address] [place] [address] 09/29/2024 Claire Rowan Plan Of Treatment No Information Progress Notes * Wilma WORLEYDOB:2005 (19 yo F)Acc No.[id number]:09/29/2024 Progress Notes Patient: Wilma ZHOU Provider: Nam Rowan MD :2005 A ge:19 Y S ex:Female Date:09/29/2024 Address:[address] [place] [address] Nam Gabriel [id number] Subjective: * Chief Complaints: * 1 . F/u chico. * Medical History: Objective: * Vitals: Assessment: Plan: * Treatment: * Billing Information: * Visit Code: * Procedure Codes: * Electronic signature of Geovanny Rowan MD on 12/25/2024 at 01:50 AM CDT Sign off status: Pending * Provider: Nam Rowan MD Date: 09/29/2024 Generated for Yasmeen pisano/Keren/eTransmitting on: 12/25/2024 01:50 AM CDT
--- OUTSIDE RECORDS SUMMARY | 2024-12-25 01:50 | XMS_ITS | Referral Summary ---
Author Organization [facility] Address Formerly [facility], [address] [place] [address] Care Team Providers Care Senior Microstrategy Developer Name Role Phone Iker Baum MD Primary Care Provider [phone] Allergies No known active allergies Medications topiramate [...] (03/23/2018): Added automatically from request for surgery [id number] Social History Tobacco Use Types Packs/Day Years Used Date Smoking Tobacco: Never Smokeless Tobacco: Never Alcohol Use Standard Drinks/Week Comments No 0 (1 standard drink = 0.6 oz pur e alcohol) Comments No Sex and Gender Information Value Date Recorded Sex Assigned at Not on file Legal Sex Female 11:29 PM HUMAN RESOURCES TECHNICIAN Gender Identity Female 02/18/2021 2:48 PM CDT Sexual Orientation Not on file Last Filed Vital Signs Vital Sign Reading Time Taken Comments Blood Pressure 125/81 09/07/2022 1:58 PM HUMAN RESOURCES TECHNICIAN Pulse 85 09/07/2022 1:58 PM HUMAN RESOURCES TECHNICIAN Temperature 36.5 C (97.7 F) 02/25/2021 8:14 AM CDT Respiratory Rate 16 01/20/2021 3:00 PM CDT Oxygen Saturation 98% 09/07/2022 1:58 PM HUMAN RESOURCES TECHNICIAN Inhaled Oxygen Concentration - - Weight 67.6 kg (149 lb) 09/07/2022 1:58 PM HUMAN RESOURCES TECHNICIAN Height 167.6 cm (5' 6 ) 09/07/2022 1:58 PM HUMAN RESOURCES TECHNICIAN Body Mass Index 24.05 09/07/2022 1:58 PM HUMAN RESOURCES TECHNICIAN Plan of Treatment Not on file Insurance [facility] H[facility]/PPO Address: [address] [place] [phone] [facility] H[facility]/PPO Address: [address] [place] [phone] [facility] HMO/PPO Address: [address] [place] [address] [facility] HMO/PPO Address: [address] [place] [address] [facility] HMO/PPO Address: [address] [place] [address] [facility] HMO/PPO Address: [place] [address] [facility] HMO/PPO Address: [facility] [address] [place] [address] Care Teams Senior Microstrategy Developer Relationship Specialty Start Date End Date Iker Baum MD [address] [place] [address] PCP - General Internal Medicine 09/01/19
--- OUTSIDE RECORDS SUMMARY | 2024-12-25 01:50 | XMS_ITS | Clinical Summary ---
Author Organization [facility] Address [address] [facility] [place] [address] Care Team Providers Care Document Control Clerk Name Role Phone Iker Baum MD Primary Care Provider [phone] Source Comments [facility],non-owned Affiliates and Associated Physician Practices is amultiple site organization consisting of ambulatory clinics and hospital sitesin [place], [place], [place] and [place]. This disclosure is being madepursuant to the Care Everywhere program and may not contain all information available regarding this patient. Last updated 18.[facility] Allergies No known active allergies Medications * Be aware that medications may not be up to date on this document. Alwaysverify current medications with the patient. Vitamin D, Cholecalciferol , 1000 UNITS Take 1 Tab by mouth every 7 days Active rizatriptan, disintegrating, (MAXALT BLOW DOWN HELPER) 5 MG tablet Take 5 mg by [...] Immunizations Immunization Administration Dates Next Due Covid M2TECH primary Monoval ent 12+ yr 0.3ml 08/31/2021 Covid M2TECH primary monoval ent 12+ yr 0.3mL Purple [...] Comments Blood Pressure 112/70 06/16/2022 3:30 PM FEED MILL SUPERVISOR Pulse 88 06/16/2022 3:30 PM FEED MILL SUPERVISOR Temperature 36.7 C (98.1 F) 06/16/2017 3:13 PM FEED MILL SUPERVISOR Respiratory Rate 20 06/16/2022 3:30 PM FEED MILL SUPERVISOR Oxygen Saturation 98% 06/16/2017 3:13 PM FEED MILL SUPERVISOR Inhaled Oxygen Concentration - - Weight 68.9 kg (151 lb 14.4 oz) 06/16/2022 3:30 PM FEED MILL SUPERVISOR Height 172.4 cm (5' 7.87 ) 06/16/2022 3:30 PM CS T Body Mass Index 23.18 06/16/2022 3:30 PM FEED MILL SUPERVISOR Plan of Treatment Health Maintenance Due Date [...] patient's age to complete this topic Insurance [facility] Care Teams Document Control Clerk Relationship Specialty Start Date End Date Iker Baum MD [address] [place] [address] PCP - General Internal Medicine 01/20/22
--- OUTSIDE RECORDS SUMMARY | 2024-12-25 01:50 | XMS_ITS | Encounter Summary ---
Author Organization [facility] Address [address] [place] [address] Care Team Providers Care Electrical Maintenance Mechanic Name Role Phone Iker Baum MD Primary Care Provider + Encounter Details Date Type Department Care Team (Late st Contact Info) Description 2004 Outpatient Historical [facility] Pediatrics - [facility] [address] [facility] [facility] [address] [address] Char Campo MD NO ADDRESS ON FILE Social History Tobacco Use Types Packs/Day Years Used Date Smoking Tobacco: Never Assessed Comments Unknown Sex and Gender Information Value Date Recorded Sex Assigned at Not on file Legal Sex Female 3:18 AM LIME SLUDGE MIXER Gender Identity Not on file Sexual Orientation Not on file documented as of this encounter Plan of Treatment Not on file documented as of this encounter Visit Diagnoses Not on filedocumented in this encounter Care Teams Electrical Maintenance Mechanic Relationship Specialty Start Date End Date Iker Baum MD [address] [place] [address] PCP - General Internal Medicine 05/26/21 documented as of this encounter
--- OUTSIDE RECORDS SUMMARY | 2024-12-25 01:50 | XMS_ITS | Encounter Summary ---
Author Organization [facility] Address [address] [place]: [place] [address] Care Team Providers Care Commission Agent Livestock Name Role Phone Iker Baum MD Primary Care Provider + Encounter Details Date Type Department Care Team (Late st Contact Info) Description 2004 Inpatient Historical Char Campo MD NO ADDRESS ON FILE Sandi Rogers MD [address] [place] [address] TWIN,MATE [facility]-W C/DELIVERY (Primary Dx) Social History Tobacco Use Types Packs/Day Years Used Date Smoking Tobacco: Never Assessed Comments Unknown Sex and Gender Information Value Date Recorded Sex Assigned at Not on file Legal Sex Female 3:18 AM MANAGER ORANGE Gender Identity Not on file Sexual Orientation Not on file documented as of this encounter Plan of Treatment Not on file documented as of this encounter Visit Diagnoses Diagnosis Twin, mate liveborn, born in hospital, delivered by delivery- Primary documented in this encounter Care Teams Commission Agent Livestock Relationship Specialty Start Date End Date Iker Baum MD [address] [place] [address] PCP - General Internal Medicine 05/26/21 documented as of this encounter
--- OUTSIDE RECORDS SUMMARY | 2024-12-25 01:50 | XMS_ITS | Patient Health Record ---
Author Organization [facility] Address [address] [address] Care Team Providers Care Filler And Trimmer Name Role Phone Claire Rowan Primary Care Provider [phone] Allergies Allergen (clinical drug ingredient) Drug/Non Drug Allergy documented on EMR Reaction Allergy Type Onset Date Status Fragrances Unknown Allergy Active Cats Unknown Allergy Active Dust Mite Mixed Allergen Ext Unknown Drug Allergy Active Results Component Value Reference Range Notes ACTH, PLASMA (Not yet review ed by provider) Interpretation: Performing Lab:ORT[facility], [facility], [address] , [place], [address] Bijan Gracia M.D.,PhD Notes/Report: FASTING:YES FASTING: YES THYROID PEROXIDASE ANTIBODIE S (Not yet reviewed by provider) Interpretation: Performing Lab:CB, [facility], [address] [place] [address], [address] [place] Notes/Report: FASTING:YES FASTING: YES THYROID PEROXIDASE ANTIBODIES 1 <9 IU/mL TESTOSTERONE, FREE (DIALYSIS ) AND TOTAL,MS (Not yet reviewed by provider) Interpretation: Performing Lab:Z3E, [facility], [address] [place] [address], [address], [place], [address] Nichelle Levy MD,PhD Notes/Report: FASTING:YES FASTING: YES TESTOSTERONE, TOTAL, MS 35 2-45 ng/dL For additional information, please refer to https://education.[employer].com/faq/HLS717 (This link is being provided for informational/educational purposes only.) (Note) This test was developed and its analytical performance characteristics have been determined by [employer] It has not been cleared or approved by the FDA. This assay has been validated pursuant to the CLIA regulations and is used for clinical purposes. TESTOSTERONE, FREE 8 0.1-6.4 pg/mL (Note) This test was developed and its analytical performance characteristics have been determined by [employer] It has not been cleared or approved by the FDA. This assay has been validated pursuant to the CLIA regulations and is used for clinical purposes. [facility] fusion [address] [address],[address] [facility] [address] Nichelle Levy MD, PhD COMPREHENSIVE METABOLIC [facility] L Reviewed date:09/09/2024 05:35:28 PM Interpretation: Performing Lab:[facility], [address] [place], [address] Andie Burnett MD Notes/Report: FASTING:YES FASTING: YES VITAMIN D, 25-HYDROXY, LC/MS /MS Reviewed date:09/09/2024 05:35:28 PM Interpretation: Performing Lab:[facility], [address], [place], [address] Andie Burnett MD Notes/Report: FASTING:YES FASTING: YES T3, FREE Reviewed date:09/09/2024 05:35:28 PM Interpretation: Performing Lab:[facility], [address], [place], [address] Andie Burnett MD Notes/Report: FASTING:YES FASTING: YES CORTISOL, TOTAL Reviewed date:09/09/2024 05:35:28 PM Interpretation: Performing Lab:[facility], [address], [place], [address] Andie Burnett MD Notes/Report: FASTING:YES FASTING: YES DHEA SULFATE Reviewed date:09/09/2024 05:35:28 PM Interpretation: Performing Lab:[facility], [address], [place], [place], [address] Andie Burnett MD Notes/Report: FASTING:YES FASTING: YES FERRITIN Reviewed date:09/09/2024 05:35:28 PM Interpretation: Performing Lab:KS, [facility], [address], [place], [address] Andie Burnett MD Notes/Report: FASTING:YES FASTING: YES HEMOGLOBIN A1c Reviewed date:09/09/2024 05:35:28 PM Interpretation: Performing Lab:[facility], [address] [place], [address] KarenArgenis Burnett Notes/Report: FASTING:YES FASTING: YES INSULIN Reviewed date:09/09/2024 05:35:28 PM Interpretation: Performing Lab:[facility], [address], [place], [address] Andie Burnett MD Notes/Report: FASTING:YES FASTING: YES MAGNESIUM Reviewed date:09/09/2024 05:35:28 PM Interpretation: Performing Lab:[facility], [address], [place], [address] Andie Burnett MD Notes/Report: FASTING:YES FASTING: YES CBC (INCLUDES DIFF/PLT) Reviewed date:09/09/2024 05:35:28 PM Interpretation: Performing Lab:[facility], [address], [place], [address] Andie Burnett MD Notes/Report: FASTING:YES FASTING: YES VITAMIN B12/FOLATE, SERUM PA GERARD Reviewed date:09/09/2024 05:35:28 PM Interpretation: Performing Lab:[facility], [address], [place], [address] Andie Burnett MD Notes/Report: FASTING:YES FASTING: YES IRON AND TOTAL IRON BINDING CAPACITY Reviewed date:09/09/2024 05:35:28 PM Interpretation: Performing Lab:[facility], [address], [place], [address] Andie Burnett MD Notes/Report: FASTING:YES FASTING: YES LIPID PANEL Reviewed date:09/09/2024 05:35:29 PM Interpretation: Performing Lab:[facility], [address], [place], [address] Andie Burnett MD Notes/Report: FASTING:YES FASTING: YES T4, FREE Reviewed date:09/09/2024 05:35:29 PM Interpretation: Performing Lab:[facility], [address] [facility], [place], [address] Andie Burnett MD Notes/Report: FASTING:YES FASTING: YES TSH Reviewed date:09/09/2024 05:35:29 PM Interpretation: Performing Lab:[facility], [address] [facility], [place], [address] Andie Burnett MD Notes/Report: FASTING:YES FASTING: YES DEXAMETHASONE (Not yet revie wed by provider) Interpretation: Performing Lab:[facility],, [address] [place], [address] Denisha Pinon MD,PhD,RAUL Notes/Report: DEXAMETHASONE 155 Reference Ranges for Dexamethasone: Baseline: Less than 20 ng/dL 1 mg dexamethasone overnight: 180-550 ng/dL (8:00-10:00 AM) This test was developed and its analytical performance characteristics have been determined by [employer]. It has not been cleared or approved by FDA. This assay has been validated pursuant to the CLIA regulations and is used for clinical purposes. CORTISOL, TOTAL (Not yet rev iewed by provider) Interpretation: Performing Lab:JORGE [facility], [address] [place] [address], [address] [place] Notes/Report: Reason For Referral No [...] Status Risk Notes Problem Vitamin D deficiency (89709924) Vitamin D deficiency, unspecified (E55.9) Active confirmed Problem Obesity (399422556) Obesity, unspecified (E66.9) Active confirmed Problem Non-toxic goiter (197180077) Nontoxic goiter, unspecified (E04.9) Active confirmed Problem Polycystic ovary syndrome (disorder) (862507659) Polycystic ovarian syndrome (E28.2) Active confirmed Vital Signs Heart Rate 90 /min 08/25/2024 SpO2: 98% Blood pressure diastolic 75 mm Hg 08/25/2024 SpO 2: 98% Height 66 in 08/25/2024 SpO2: 98% Blood pressure systolic 128 mm Hg 08/25/2024 SpO2 : 98% Weight 172.6 lbs 08/25/2024 SpO2: 98% BMI 27.86 kg/m2 08/25/2024 SpO2: 98% Encounters Encounter Location Date Provider Diagnosis [facility] Claire Headstrong [address] [place] [address] 08/25/2024 Claire Headstrong Polycystic ovarian syndrome E28.2 ; Abnormal weight gain R63.5 ; Overweight E66.3 ; Vitamin D deficiency, unspecified E55.9 ; Encounter for screening for lipoid disorders Z13.220 ; Other fatigue R53.83 ; Nontoxic goiter, unspecified E04.9 ; Obesity, unspecified E66.9 and Dietary counseling and surveillance Z71.3 [facility] [address] [place] [address] 09/29/2024 Claire Rowan Assessments Encounter Date Diagnosis [...] lab resultsConsider recommending Purely Holistic supplement from [employer] (soy-free, GMO-free, [id number]) based on lab results Suspected HypercortisolismOrder dexamethasone [...] and potential iodine deficiencySchedule thyroid ultrasound at [place] to check for heterogeneity and inflammation Follow-up:Schedule [...] procedures, referring and communicating with other health college and career counselor, documenting clinical information in the electronic or [...] Insured Coverage Start Date Coverage End Date [facility] [address] [place] [address] [id number] Wilma Encarnacion Self - patient is the insured Medical (General) History Medical History History ICD Code PCOS MCAS
--- OUTSIDE RECORDS SUMMARY | 2024-12-25 01:50 | XMS_ITS ---
Author Organization [facility] Address [address] [address] Care Team Providers Care Special Education Supervisor Name Role Phone Claire Rowan Primary [...] Status W/U Status Risk Notes Problem Polycystic ovary syndrome (disorder) (896759405) Polycystic ovarian syndrome (E28.2) Active confirmed Problem Vitamin D deficiency (47581334) Vitamin D deficiency, unspecified (E55.9) Active confirmed Problem Non-toxic goiter (383910899) Nontoxic goiter, unspecified (E04.9) Active confirmed Problem Obesity (353421564) Obesity, unspecified (E66.9) Active confirmed Vital Signs Blood pressure systolic 128 mm Hg 08/25/19 25 Blood pressure diastolic 75 mm Hg 025 Heart Rate 90 /min 08/25/2024 Height 66 in 08/25/2024 Weight 172.6 lbs 08/25/2024 BMI 27.86 kg/m2 08/25/2024 SpO2: 98% Encounters Encounter Location Date Provider Diagnosis [facility] - Claire Rowan [address] [place] [address] 08/25/2024 Claire Rowan Polycystic ovarian syndrome E28.2 [...] lab resultsConsider recommending Purely Holistic supplement from [employer] (soy-free, GMO-free, [id number]-hmjq) based on lab results Suspected HypercortisolismOrder dexamethasone [...] and potential iodine deficiencySchedule thyroid ultrasound at [place] to check for heterogeneity and inflammation Follow-up:Schedule [...] procedures, referring and communicating with other health manager care, documenting clinical information in the electronic or [...] lab resultsConsider recommending Purely Holistic supplement from [employer] (soy-free, GMO-free, [id number]) based on lab results Suspected HypercortisolismOrder dexamethasone [...] and potential iodine deficiencySchedule thyroid ultrasound at [place] to check for heterogeneity and inflammation Follow-up:Schedule [...] procedures, referring and communicating with other health manager care, documenting clinical information in the electronic or [...] Notes * Wilma WORLEYDOB:2005 (19 yo F)Acc No.[id number]:08/25/2024 Progress Notes Patient: Wilma ZHOU Provider: Nam Rowan MD :2005 A ge:19 Y S ex:Female Date:08/25/2024 Address:[address] [place] [address] , [facility] Subjective: * Chief Complaints: * 1 . [...] o l oss of appetite. n o fever. n o w eakness. n o w eight loss. n o n ight sweats. n o n ausea. n o v isual changes. n o c hange in sleep patterns. h +p reviewed y es, R OS form reviewed with patient see scan for detail. n o c hange in activity capacity. D ERMATOLOGY: no r neal. n o c hange in color of moles. n o lumps. n o d ry or sensitive skin. n o h shannon. n o o nick skin. n o acne. n o m oles-irregular. n o m [...] heumatism. n o c hanges in skin texture. N EUROLOGY: headache y es. n o t ingling numbness. n o s eizures. n o i nsomnia. m stacie loss y es. n o d izziness. n o g ait abnormality. n o c hange in sensation anywhere on body. n o l ocalized weakness or numbness. n o b lackouts or near blackouts. n o m igraine. n o t remors. no f ainting spells. n o h ead injury. n o s troke. O PTHALMOLOGY: no d iminished vision. n o e ye irritation. n o drainage from eyes. n o b lurring of vision. n o s easonal eye sx. n o dander related eye sx. n o l oss of vision. n o c ataracts. n o g lasses/contacts. n o g laucoma. n o d etached retina. n o m acular degeneration. no e ye redness. R ESPIRATORY: no s hortness of breath. n o c hest pain. n o wheezing. n o a sthma. n o b [...] s inus congestion. s tuffy nose y es. watery eyes y es. n o s easonal allergies. n o h ay fever. n o a llergy. n o p olyps. s neezing y es. H EMATOLOGY/LYMPH: no s wollen glands. n o f atigue. n o l oss of appetite. n o e asy bruising. n o e asy bleeding. n o a nemia. U ROLOGY: no d ifficulty urinating. n [...] o c ough. n o c oughing blood. no n ose bleed. n o h earing [...] oiter. n o g um problems. n o postnasal drip. n o f requent nosebleeds. C ARDIOLOGY: chest pain y es, t ightness. n o p alpitations. no l eg swelling. d izziness y es. [...] lcers. n o a nal fissures. n o hepatitis. n o g allstones. n o r ed blood after bowel movements. n o v omiting. n o b loating/belching. n o d ifficulty swallowing. d iarrhea y es. constipation y es. n o c hange in bowel habits. n o b lood in stool. M USCULOSKELETAL: joint swelling y es, k nee. j oint pain y es, knee. n o l eg cramps. n o j oint stiffness. n o a rthritis. n o back pain. n o m uscle aches. n o m orning stiffness. n o t endinitis. no n agatha pain. n o b ursitis. [...] lab resultsConsider recommending Purely Holistic supplement from [employer] (soy-free, GMO-free, [id number]-[id number]) based on lab results Suspected HypercortisolismOrder dexamethasone [...] and potential iodine deficiencySchedule thyroid ultrasound at [place] to check for heterogeneity and inflammation Follow-up:Schedule [...] procedures, referring and communicating with other health manager care, documenting clinical information in the electronic or [...] def. * Procedure Codes: 9 9401 P/M LADLE LINER HELPER, INDIV 15 MIN * Follow Up: 6 Weeks (Reason: labwork) * Billing Information: * Visit Code: 49080 Office Visit, New Pt., Level 4. * Procedure Codes: 29110 P/M LADLE LINER HELPER, INDIV 15 MIN. * IT UNION EXAMINER Sign off status: Completed true * Provider: Nam Rowan MD Date: 0 08/25/2024 Generated for Yasmeen pisano/Keren/Yumikoitting on: 0 12/25/2024 01:50 AM CDT History and Physical Notes * [...]
--- OUTSIDE RECORDS SUMMARY | 2024-12-25 01:50 | XMS_ITS | Clinical Summary ---
Author Organization [facility] Address [address] [place] [address] Phone Care Team Providers Care Assembler Utility Buildings Name Role Phone Iker Baum MD Primary Care Provider + Allergies Active Allergy Reactions Criticality Noted Date Comments Ciprofloxacin Other (See Comments) High 09/28/2022 [facility] DOES NOT WANT PT TO TAKE THIS [...] 10 mg 60 Tablet 08/05/2024 4:42 PM AIR TRANSP[employer] Active dextroamphetami ne-amphetamine (ADDERALL) 5 mg tablet [...] on file Legal Sex Female 3:18 AM AIR TRANSPORT PROFESSION[employer] Gender Identity Not on file Sexual Orientation [...] 2005, 2005, 2004, Additional history exists Insurance [employer] [facility] [id number] [facility] Address: [facility] [id number] [place] [address] [facility] [employer] Care Teams Assembler Utility Buildings Relationship Specialty Start Date End Date Iker Baum MD [address] [place] [phone] PCP - General Internal Medicine 05/26/21
--- OUTSIDE RECORDS SUMMARY | 2024-12-25 01:50 | XMS_ITS | Encounter Summary ---
Author Organization [facility] Address [address] [place] [address] Care Team Providers Care Mastic Man Name Role Phone Iker Baum MD Primary Care Provider + Encounter Details Date Type Department Care Team (Late st Contact Info) Description [address] [facility] Department of Peds at [facility] [address] [place] [address] Mariangel Moon MD [address] [facility] [address] [address] Social History Tobacco Use Types Packs/Day Years Used Date Smoking Tobacco: Never Assessed Comments Unknown Sex and Gender Information Value Date Recorded Sex Assigned at Not on file Legal Sex Female 3:18 AM BEHAVIORAL HEALTH CARE MANAGER Gender Identity Not on file Sexual Orientation Not on file documented as of this encounter Plan of Treatment Not on file documented as of this encounter Visit Diagnoses Not on filedocumented in this encounter Care Teams Mastic Man Relationship Specialty Start Date End Date Iker Baum MD [address] [place] [phone] PCP - General Internal Medicine 05/26/21 documented as of this encounter
--- OUTSIDE RECORDS SUMMARY | 2024-12-25 01:50 | XMS_ITS | Encounter Summary ---
Author Organization [facility] Address [address] [place] [address] Care Team Providers Care Shake Maker Name Role Phone Iker Baum MD Primary Care Provider + Encounter Details Date Type Department Care Team (Late st Contact Info) Description 2004 Outpatient Historical [facility] [id number] [place] [address] Gabriella Benz AU[address]D [address] [place] [address] Social History Tobacco Use Types Packs/Day Years Used Date Smoking Tobacco: Never Assessed Comments Unknown Sex and Gender Information Value Date Recorded Sex Assigned at Not on file Legal Sex Female 3:18 AM ANIMAL BIOLOGIST Gender Identity Not on file Sexual Orientation Not on file documented as of this encounter Plan of Treatment Not on file documented as of this encounter Visit Diagnoses Not on filedocumented in this encounter Care Teams Shake Maker Relationship Specialty Start Date End Date Iker Baum MD [address] [place] [address] PCP - General Internal Medicine 05/26/21 documented as of this encounter
--- OUTSIDE RECORDS SUMMARY | 2024-12-25 01:50 | XMS_ITS | Clinical Summary ---
Author Organization [facility] Address [facility] [place] [address] Care Team Providers Care Surgical Clinical Reviewer Name Role Phone Iker Baum MD Primary Care Provider [phone] Allergies No known active allergies Medications topiramate [...] (03/23/2018): Added automatically from request for surgery [id number] Surgical History Surgery Date Site/Laterality Comments DENTAL [...] PCOS (polycystic ovarian syndrome) on Metformin per stadium attendant COVID-19 Unvaccinated As of 01/16 Family History [...] on file Legal Sex Female 11:29 PM CASING INSPECTOR Gender Identity Female 02/18/2021 2:48 PM CDT [...] Comments Blood Pressure 125/81 09/07/2022 1:58 PM CASING INSPECTOR Pulse 85 09/07/2022 1:58 PM CASING INSPECTOR Temperature 36.5 C (97.7 F) 02/25/2021 8:14 AM CDT Respiratory Rate 16 01/20/2021 3:00 PM CDT Oxygen Saturation 98% 09/07/2022 1:58 PM CASING INSPECTOR Inhaled Oxygen Concentration - - Weight 67.6 kg (149 lb) 09/07/2022 1:58 PM CASING INSPECTOR Height 167.6 cm (5' 6 ) 09/07/2022 1:58 PM CASING INSPECTOR Body Mass Index 24.05 09/07/2022 1:58 PM CASING INSPECTOR Plan of Treatment Health Maintenance Due Date [...] 12/23/2009 Meningococcal Vaccine Completed 02/18/2022, 016 Insurance [facility] PLUS [facility] Address: [facility] [address] [place] [address] [facility]US [facility] Address: [address] [place] [address] [facility] Address: [address] [place] [address] [facility] Address: [address] [place] [address] [facility] PLUS [facility] Address: [address] [place] [address] [facility] Address: [address] [place] [address] [place] [address] [place] [address] [facility] H[facility]/PPO Address: [address] [place] [address] Care Teams Surgical Clinical Reviewer Relationship Specialty Start Date End Date Iker Baum MD [address] [place] [address] PCP - General Internal Medicine 09/01/19
[2024-12-25] MEDS: ACETAMINOPHEN 500 MG TABLET 1000 MG PO (10:45)
[2024-12-25] MEDS: LACTATED RINGERS 1,000 ML 30 ML IV CONT ×3 (10:50→14:56)
[2024-12-25] MEDS: KETOROLAC 15 MG/ML VIAL (*BKC) IV PUSH (10:50)
--- NOTE | 2024-12-25 11:39 | P.PNAN_ITS ---
Anes - Initial Pre Proc Eval Procedure: Operation Date: 12/25/24 12:00 Proposed Procedures p Laparoscopic Cholecystectomy, Possible Open - Ralph Pierce DO Date/Time: 12/25/24 11:39 Surgeon: Ralph Pierce DO Pre Op Diagnosis: Biliary Dyskinesia Patient Data Age: 19 Gender: F Height: 1.68 m Weight: 73.5 kg Last Vital Signs Temp 36.8 C 12/25/24 10:16 Pulse 83 12/25/24 10:16 Resp 16 12/25/24 10:16 BP 122/75 12/25/24 10:16 Pulse Ox 98 12/25/24 10:16 O2 Del Method Room Air 12/25/24 10:16 Allergies Allergy/AdvReac Type Severity Reaction Status Date / Time No Known Allergies Allergy Verified 12/25/24 10:54 Home Medications Medication Instructions Recorded Confirmed Type Nurtec ODT 75 mg disintegrating See Rx Instructions .Route 12/15/23 12/14/24 Rx tablet (rimegepant) .COMPLEX #16 tabs norethindrone (contraceptive) 0.35 0.35 mg PO DAILY #112 tabs 08/17/24 12/25/24 Rx mg tablet dextroamphetamine-amphetamine 5 mg 5 mg PO BID PRN anxiety 12/22/24 12/25/24 History tablet (Adderall) famotidine 10 mg tablet (Pepcid AC) 10 mg PO DAILY PRN anxiety 12/22/24 12/25/24 History Patient hx anesthesia problems: none Family hx anesthesia problems: none Results Review: All pre-operative results and documents have been reviewed as part of the pre- operative evaluation. [facility] Past Medical History Medical History BMI 27.0-27.9,adult Mononucleosis Costochondritis BMI 24.0-24.9, adult Chest wall discomfort Vertigo Clammy skin Hypermobility syndrome Flat foot [pes planus] (acquired), left foot Flat foot [pes planus] (acquired), right foot Migraine Gastrointestinal distress Numbness and tingling in both hands Paresthesia Hypersomnolence Tortuous colon Preoperative clearance Encounter for screening for COVID-19 Diarrhea Right upper quadrant abdominal pain Reactive hypoglycemia Adult BMI 19-24 kg/sq m Anxiety BMI 21.0-21.9, adult Midsternal chest pain Chest discomfort Insulin resistance Injury while playing volleyball Sore throat Follow up ADD (attention deficit disorder) UTI symptoms SOB (shortness of breath) Exposure to COVID-19 virus UTI (urinary tract infection) On joint terminal attack controller drug therapy Stomach discomfort BMI 22.0-22.9, adult Cough Vitamin D deficiency Depressed mood BMI 23.0-23.9, adult Dizziness Insomnia Follow up Cervicalgia Frequent headaches Memory impairment Surgical History Surgical History No history of previous surgery Family History Family History Father Diabetes mellitus Family history of hypercholesterolemia Grandparent Cerebrovascular accident Hypertension Blood clot in vein Mother Thyroid disease Social History Social History Smoking status: Never smoker Second hand tobacco smoke exposure: No Alcohol intake: current Substance use: never Lack of Transportation: No Lack of Food: Never True Current Housing: I Have Housing Concerned About Future Housing: No Difficulty Paying Gas/Electric Bills: No Difficulty Paying for Meds: No Currently Unemployed: No Education: High School Diploma/GED Difficulty w/ Childcare or Family Care: No Living arrangements: with family Occupation/Education: occupation Gender identity (if verbalized by the patient): Female Spiritual care concerns: No Anes - Eval Final PreProcedure Day of Procedure 12/25/24 11:39 Patient weight: normal Heart: regular rate and rhythm Lungs: clear to auscultation Airway: Mallampati scale class II Neurological: alert and oriented Last oral intake: >/= 8 hours ASA classification: II Emergent: no Anesthetic plan: proceed Anesthesia type and monitoring: general ETT and standard monitoring Results Review: All pre-operative results and documents have been reviewed as part of the pre- operative evaluation. Informed Consent: The patient's anesthetic plan and its attendant risks and benefits were discussed with the patient/family/POA. Questions were solicited and answers provided to the satisfaction of the patient/family/POA.
--- NOTE | 2024-12-25 12:04 | P.HP_ITS ---
H&P: HPI History of Present Illness Date/Time: 12/25/24 12:04 Chief Complaint: Biliary dyskinesia Narrative: 19 yo woman presents for laparoscopic cholecystectomy. She reports no changes since last seen in office. Review of Systems Review of Systems: All systems reviewed & are unremarkable except as noted in HPI and below Constitutional: Constitutional: Denies chills, Denies fever(s), Denies headache(s) and Denies weight loss Eyes: Eyes: Denies change in vision ENT: Denies dizziness, Denies headache(s), Denies neck mass and Denies throat swelling Cardiovascular: Cardiovascular: Denies chest pain, Denies lightheadedness and Denies dyspnea Respiratory: Respiratory: Denies cough, Denies dyspnea and Denies wheezing Gastrointestinal: Gastrointestinal: Denies abdominal pain, Denies change in bowel habits, Denies nausea and Denies vomiting Genitourinary: Genitourinary: Denies hematuria and Denies dysuria Musculoskeletal: Musculoskeletal: Reports as per HPI Integumentary/Breasts: Skin/Breast: Reports as per HPI Neurologic: Denies dizziness and Denies headache(s) Allergic/Immunologic: Allergic/Immunologic: Denies throat swelling and Denies wheezing [facility] Past Medical History Medical History BMI 27.0-27.9,adult Mononucleosis Costochondritis BMI 24.0-24.9, adult Chest wall discomfort Vertigo Clammy skin Hypermobility syndrome Flat foot [pes planus] (acquired), left foot Flat foot [pes planus] (acquired), right foot Migraine Gastrointestinal distress Numbness and tingling in both hands Paresthesia Hypersomnolence Tortuous colon Preoperative clearance Encounter for screening for COVID-19 Diarrhea Right upper quadrant abdominal pain Reactive hypoglycemia Adult BMI 19-24 kg/sq m Anxiety BMI 21.0-21.9, adult Midsternal chest pain Chest discomfort Insulin resistance Injury while playing volleyball Sore throat Follow up ADD (attention deficit disorder) UTI symptoms SOB (shortness of breath) Exposure to COVID-19 virus UTI (urinary tract infection) On long-term drug therapy Stomach discomfort BMI 22.0-22.9, adult Cough Vitamin D deficiency Depressed mood BMI 23.0-23.9, adult Dizziness Insomnia Follow up Cervicalgia Frequent headaches Memory impairment Surgical History Surgical History No history of previous surgery Family History Family History Father Diabetes mellitus Family history of hypercholesterolemia Grandparent Cerebrovascular accident Hypertension Blood clot in vein Mother Thyroid disease Social History Social History Smoking status: Never smoker Second hand tobacco smoke exposure: No Alcohol intake: current Substance use: never Lack of Transportation: No Lack of Food: Never True Current Housing: I Have Housing Concerned About Future Housing: No Difficulty Paying Gas/Electric Bills: No Difficulty Paying for Meds: No Currently Unemployed: No Education: High School Diploma/GED Difficulty w/ Childcare or Family Care: No Living arrangements: with family Occupation/Education: occupation Gender identity (if verbalized by the patient): Female Spiritual care concerns: No Meds Home Medications and Allergies Home Medications Medication Instructions Recorded Confirmed Type Nurtec ODT 75 mg disintegrating See Rx Instructions .Route 12/15/23 12/14/24 Rx tablet (rimegepant) .COMPLEX #16 tabs norethindrone (contraceptive) 0.35 0.35 mg PO DAILY #112 tabs 08/17/24 12/25/24 Rx mg tablet dextroamphetamine-amphetamine 5 mg 5 mg PO BID PRN anxiety 12/22/24 12/25/24 History tablet (Adderall) famotidine 10 mg tablet (Pepcid AC) 10 mg PO DAILY PRN anxiety 12/22/24 12/25/24 History Allergies Allergy/AdvReac Type Severity Reaction Status Date / Time No Known Allergies Allergy Verified 12/25/24 10:54 Vital Signs Vital Signs - 24 hr 12/25/24 10:16 Temperature 98.2 F Pulse Rate 83 Respiratory Rate 16 Blood Pressure 122/75 Pulse Oximetry 98 Oxygen Delivery Room Air Exam Const: General: no acute distress and alert Orientation/consciousness: patient oriented x3 HENMT: Head: normocephalic and atraumatic Ears: hearing grossly normal bilaterally Face/Nose/Sinus: Normal nares present Mouth: Yes Normal oral and palatal mucosa present Eyes: Periorbital: periorbital findings normal Sclera: sclerae normal EOM: EOMs intact bilaterally Neck: Neck: normal visual inspection, no lymphadenopathy and trachea midline Chest: Chest palpation & inspection: normal inspection of the chest Resp: Effort & Inspection: normal respiratory effort Auscultation: clear to auscultation bilaterally Cardio: Jugular venous distension: no JVD Rate: regular rate Rhythm: regular rhythm Heart sounds: S1 normal heart sound present and S2 normal heart sound present Peripheral pulses: Peripheral pulses 2+ throughout GI: Inspection: normal to inspection GI Palp: Yes Soft to palpation, No Tenderness to palpation present (GI), No Guarding due to palpation present (GI) and No Rebound tenderness present Percussion: Yes normal to percussion Auscultation: normal bowel sounds : General: Yes no CVA tenderness Back/Spine/Pelvis: Back: no CVA tenderness Neuro: General: patient oriented x3, no focal motor deficits and CN's II-XI intact bilaterally Cognition (Neuro): normal cognition Speech: normal speech Motor exam (neuro): 5/5 motor strength present throughout Extrem: General: capillary refill normal and no clubbing, cyanosis or edema Assessment and Plan Assessment and plan (1) Biliary dyskinesia: Code(s): K82.8 - Other specified diseases of gallbladder Status: Acute Assessment and Plan: I have recommended laparoscopic cholecystectomy, possible open. I have discussed the procedure, risks, benefits, and alternatives with the patient. All questions answered. No changes since last seen in office.
--- NOTE | 2024-12-25 12:07 | WPDHPUPDATE1 ---
History and Physical Update Update Date/Time: 12/25/24 12:07 History and Physical has been reviewed, including an updated exam of the patient. There are NO changes in the patient's condition. Risks, benefits, and alternatives have been discussed and questions answered. Patient agrees to proceed with procedure.
[2024-12-25 12:18] LABS: BEDSIDEPREGUCG Negative (Negative)
[2024-12-25] MEDS: ceFAZolin 2 GM/D5W 50 ML 2 GM/50 ML BAG IVPB (12:32)
[2024-12-25] MEDS: BUPIVACAINE/EPINEPHRINE 0.5% 50 ML VIAL 30 ML INFILTRATE (13:00)
--- NOTE | 2024-12-25 13:26 | P.OP_ITS ---
Procedure Note - Detailed Date of Procedure 12/25/24 Pre-op Diagnosis Biliary Dyskinesia Post-op Diagnosis Same Procedure Performed Laparoscopic cholecystectomy Surgeon Ralph Pierce, DO Anesthesia General and Local (0.5% bupivacaine) Indications This is a 19-year-old woman who presented with right upper quadrant pain and bloating that started about 6 months ago. She noticed this more with eating heavier foods. Since she has started a strictly low-fat diet her symptoms have improved somewhat. She had a gallbladder ultrasound which was normal then then a HIDA scan which showed a gallbladder ejection fraction of 4%. Further discussions were made with the patient about treatment options and decision was made to proceed with laparoscopic cholecystectomy, possible open. Findings Laparoscopic cholecystectomy was performed. The gallbladder had some possible mild chronic wall thickening but was otherwise normal appearing. The cystic duct appeared normal in size. No other significant intra-abdominal abnormalities were noted. The gallbladder was removed and sent to the lab for pathology. Description of Procedure Procedure as well as risks, benefits, and alternatives were discussed with patient. Written consent was obtained and placed in chart prior to procedure. The patient was brought back to surgical suite. Patient was placed in supine position on operating table. Time-out was done to confirm patient and procedure. Patient was then intubated by the anesthesia department. Abdomen was prepped and draped in sterile fashion using chlorhexidine prep. 0.5% bupivacaine with epinephrine was infiltrated at each site of incision. An 11 millimeter vertical incision was made at the inferior portion of the umbilicus using a 15 blade scalpel. Blunt dissection was carried down to the l inea alba. The linea alba was then incised using a 15 blade scalpel. The peritoneum was then bluntly entered. An 11 millimeter trocar was inserted and carbon dioxide insufflation was used to create a pneumoperitoneum. The camera was inserted and the abdomen was inspected. The patient was placed in reverse Trendelenberg position and rotated slightly to the left. A 5 millimeter incision was made in the epigastric region, and a 5 millimeter trocar was inserted under direct visualization. Two 5 millimeter incisions were made in the right upper quadrant, and two 5 millimeter trocars were inserted under direct visualization. The gallbladder was identified and grasped at the fundus and retracted superiorly. It was then grasped at the infundibulum retracted laterally. Careful dissection around the neck of the gallbladder was performed using blunt dissection with a [place] grasper and hook electrocautery. The cystic duct was identified, and a window was created behind it. The cystic artery was also identified and a window was created behind it. The critical view of safety was identified, visualizing the cystic duct running directly into the neck of the gallbladder, and the cystic artery running directly into the wall of the gallbladder. A 5 millimeter clip personnel research scientist was then used to place 2 clips proximally and 1 clip distally on both the cystic duct and cystic artery. They were then both transected using endoscopic scissors. Once safely away from the araceli hepatitis, the gallbladder was dissected free from the liver bed using hook electrocautery. Hemostasis was achieved along the way. The gallbladder was removed completely and then removed through the umbilical port. The liver bed was then inspected. Hemostasis appeared adequate, and our clips appeared secure. The area was gently irrigated with sterile saline. No other abnormalities were seen. The patient was flattened out in bed, and 1 final inspection was made around the abdominal cavity. The ports were then removed under direct visualization, the camera was removed, and the pneumoperitoneum was released. The fascia of the umbilical incision was approximated using an 0 Vicryl [id number] suture. The skin of the incisions was approximated using 4-0 Monocryl subcuticular sutures. Exofin glue was applied on top. The patient was then awakened from anesthesia, extubated, and transferred to recovery. Estimated Blood Loss 5 Urine Output 300 Pathology Yes (Gallbladder) Complications No immediate complications Condition Stable Disposition Same day [facility] Billing Surgery - Charge Forward: Surgery Billing
[2024-12-25] MEDS: fentaNYL CITRATE INJ (*CRX) 100 MCG/2 ML VIAL 25 MCG IV PUSH ×4 (13:50→14:09)
[2024-12-25] MEDS: oxyCODONE HCL (*CRX) 5 MG TAB IR PO (14:34)
[2024-12-25] MEDS: ONDANSETRON INJ 4 MG/2 ML VIAL IV PUSH (14:54)
[2024-12-25] MEDS: diphenhydrAMINE HCl INJ 50 MG/ML VIAL 25 MG IV PUSH (15:10)
[2024-12-25] MEDS: SCOPOLAMINE 1 MG PATCH 1 PATCH TRANSDERM (15:10)
== END 2024-12-25 16:10 | disposition home or self-care (01) ==
PROVIDERS: PCP Internal Medicine; Visit Provider Surgery
PROC: 0FT44ZZ Resection of Gallbladder, Percutaneous Endoscopic Approach (ICD-10-PCS; CPT 47562; principal; 2024-12-25 12:00)
DX: K82.8 Other specified diseases of gallbladder (principal)
CPT/HCPCS: 47562; 88304; A9270; J0690; J1100; J1200; J1885; J2003; J2250; J2405; J2704; J3010; J7030; J7120

== ENCOUNTER 2025-02-07 12:47 | Outpatient (CLI) | payer OTHER, SELFPAY ==
--- NOTE | ~2025-02-07 | US_ITS ---
Pelvic ultrasound. Clinical History: 4.1 x 2.5 x 3.7 Technique: Realtime transabdominal and transvaginal scanning of the pelvis was performed. Color flow Doppler and Doppler spectral analysis were performed. Findings: The uterus is anteverted. The endometrial stripe has a thickness of 9 mm. No focal mass is identified. The right ovary measures 3.4 x 2.4 x 3.7 cm. Simple right paraovarian cyst measures 2 cm in diameter. The left ovary measures 3.3 x 2.7 x 3.8 cm. No significant left ovarian or adnexal mass is seen. There is no evidence of free fluid in the cul de sac. Impression: 2 cm simple right paraovarian cyst. Reviewed, dictated and finalized at [facility]. Impression: 2 cm simple right paraovarian cyst.
== END 2025-02-07 12:48 | disposition home or self-care (01) ==
LOC: MICIMG 12:48
PROVIDERS: PCP Nurse Practitioner Obstetrics & Gynecology; Visit Provider Nurse Practitioner Obstetrics & Gynecology
DX: N93.9 Abnormal uterine and vaginal bleeding, unspecified (principal); N83.201 Unspecified ovarian cyst, right side
CPT/HCPCS: 76830; 76856

== ENCOUNTER 2025-02-14 17:05 | Outpatient (CLI) | payer OTHER, SELFPAY ==
--- NOTE | ~2025-02-14 | XR_ITS ---
CHEST RADIOGRAPH, PA AND LATERAL CLINICAL HISTORY: R05.3 - Chronic cough X 4 WEEKS . COMPARISON: 07/03/2029 TECHNIQUE: PA and lateral views of the chest. FINDINGS The cardiomediastinal silhouette is unremarkable. The lungs are clear. IMPRESSION: No focal infiltrate or effusion. Reviewed, dictated and finalized at location A.
--- OUTSIDE RECORDS SUMMARY | 2025-02-14 17:09 | XMS_ITS | Encounter Summary ---
Author Organization [facility] Address [address] [place] [address] Care Team Providers Care Canvas Shop Laborer Name Role Phone Iker Baum MD Primary Care Provider + Encounter Details Date Type Department Care Team (Late st Contact Info) Description 2004 Outpatient Historical [facility] Department of Peds at [facility] [address] [place] [address] Mariangel Moon MD [address] [facility] [address] [address] Social History Tobacco Use Types Packs/Day Years Used Date Smoking Tobacco: Never Assessed Comments Unknown Sex and Gender Information Value Date Recorded Sex Assigned at Not on file Legal Sex Female 3:18 AM FIELD ADJUSTER Gender Identity Not on file Sexual Orientation Not on file documented as of this encounter Plan of Treatment Not on file documented as of this encounter Visit Diagnoses Not on filedocumented in this encounter Care Teams Canvas Shop Laborer Relationship Specialty Start Date End Date Iker Baum MD [address] [place] [address] PCP - General Internal Medicine 05/26/21 documented as of this encounter
--- OUTSIDE RECORDS SUMMARY | 2025-02-14 17:09 | XMS_ITS | Encounter Summary ---
Author Organization [facility] Address [address] [place] [address] Care Team Providers Care Certified Nursing Assistant Name Role Phone Iker Baum MD Primary Care Provider + Encounter Details Date Type Department Care Team (Late st Contact Info) Description 2004 Outpatient Historical [facility] [address] [facility] [address] [address] Char Campo MD NO ADDRESS ON FILE Social History Tobacco Use Types Packs/Day Years Used Date Smoking Tobacco: Never Assessed Comments Unknown Sex and Gender Information Value Date Recorded Sex Assigned at Not on file Legal Sex Female 3:18 AM RACE RELATIONS PROFESSOR Gender Identity Not on file Sexual Orientation Not on file documented as of this encounter Plan of Treatment Not on file documented as of this encounter Visit Diagnoses Not on filedocumented in this encounter Care Teams Certified Nursing Assistant Relationship Specialty Start Date End Date Iker Baum MD [address] [place] [id number] PCP - General Internal Medicine 05/26/21 documented as of this encounter
--- OUTSIDE RECORDS SUMMARY | 2025-02-14 17:09 | XMS_ITS | Clinical Summary ---
Author Organization [facility] Address [facility] [place] [address] Care Team Providers Care Gum Remover Name Role Phone Iker Baum MD Primary Care Provider [phone] Allergies No known active allergies Medications topiramate [...] (03/23/2018): Added automatically from request for surgery [id number] Surgical History Surgery Date Site/Laterality Comments DENTAL [...] PCOS (polycystic ovarian syndrome) on Metformin per i&c tech COVID-19 Unvaccinated As of 01/16 Family History [...] on file Legal Sex Female 11:29 PM CABIN AGENT Gender Identity Female 02/18/2021 2:48 PM CDT [...] Comments Blood Pressure 125/81 09/07/2022 1:58 PM CABIN AGENT Pulse 85 09/07/2022 1:58 PM CABIN AGENT Temperature 36.5 C (97.7 F) 02/25/2021 8:14 AM CDT Respiratory Rate 16 01/20/2021 3:00 PM CDT Oxygen Saturation 98% 09/07/2022 1:58 PM CABIN AGENT Inhaled Oxygen Concentration - - Weight 67.6 kg (149 lb) 09/07/2022 1:58 PM CABIN AGENT Height 167.6 cm (5' 6) 09/07/2022 1:58 PM CABIN AGENT Body Mass Index 24.05 09/07/2022 1:58 PM CABIN AGENT Plan of Treatment Health Maintenance Due Date Last Done Comments Depression Screening 2004 Hepatitis C Screening 2004 HPV Vaccines (1 - 3-dose series) 2019 Meningococcal B Vaccine (1 o f 2 - Standard) 2020 Regular Well Visit/Exam 18-64 2022 Covid-19 Vaccine (3 - 2023-2 5 season) 2024 08/31/2021, 08/10/2021 Influenza Vaccine (Season Ended) 2025 DTaP/Tdap/Td Vaccine (7 - Td or Tdap) 04/18/2025 04/18/2015, 12/23/2009, 01/06/2006, Additional history exists Hepatitis B Screening Completed 2004 , 2004, 2004, Additional history exists Pneumococcal vaccine <65 Completed 006, 2004, 2004, Additional history exists Varicella Vaccines Completed 02/11/2016, 12/23/2009 Meningococcal Vaccine Completed 02/18/2022, 016 Insurance [facility] CHO[facility] PLUS [facility] CHO[facility] PLUS [facility] PLUS [facility] CHO[facility] PLUS [facility] [place] [address] [place] [address] [facility] CHOICE PLUS Care Teams Gum Remover Relationship Specialty Start Date End Date Iker Baum MD [address] [place] [address] PCP - General Internal Medicine 09/01/19
--- OUTSIDE RECORDS SUMMARY | 2025-02-14 17:09 | XMS_ITS | Referral Summary ---
Author Organization [facility] Address [facility] [place] [address] Care Team Providers Care Head Chef Name Role Phone Iker Baum MD Primary Care Provider [phone] Allergies No known active allergies Medications topiramate [...] (03/23/2018): Added automatically from request for surgery [id number] Social History Tobacco Use Types Packs/Day Years Used Date Smoking Tobacco: Never Smokeless Tobacco: Never Alcohol Use Standard Drinks/Week Comments No 0 (1 standard drink = 0.6 oz pur e alcohol) Comments No Sex and Gender Information Value Date Recorded Sex Assigned at Not on file Legal Sex Female 11:29 PM OPTICS TEST TECHNICIAN Gender Identity Female 02/18/2021 2:48 PM CDT Sexual Orientation Not on file Last Filed Vital Signs Vital Sign Reading Time Taken Comments Blood Pressure 125/81 09/07/2022 1:58 PM OPTICS TEST TECHNICIAN Pulse 85 09/07/2022 1:58 PM OPTICS TEST TECHNICIAN Temperature 36.5 C (97.7 F) 02/25/2021 8:14 AM CDT Respiratory Rate 16 01/20/2021 3:00 PM CDT Oxygen Saturation 98% 09/07/2022 1:58 PM OPTICS TEST TECHNICIAN Inhaled Oxygen Concentration - - Weight 67.6 kg (149 lb) 09/07/2022 1:58 PM OPTICS TEST TECHNICIAN Height 167.6 cm (5' 6) 09/07/2022 1:58 PM OPTICS TEST TECHNICIAN Body Mass Index 24.05 09/07/2022 1:58 PM OPTICS TEST TECHNICIAN Plan of Treatment Not on file Insurance [facility] PLUS Care Teams Head Chef Relationship Specialty Start Date End Date Iker Baum MD [address] [place] [address] PCP - General Internal Medicine 09/01/19
--- OUTSIDE RECORDS SUMMARY | 2025-02-14 17:09 | XMS_ITS | Encounter Summary ---
Author Organization [facility] Address [address] [place] [address] Care Team Providers Care Farmworker Egg Producing Farm Name Role Phone Iker Baum MD Primary Care Provider + Encounter Details Date Type Department Care Team (Late st Contact Info) Description 2004 Outpatient Historical [facility] [id number] [place] [address] Gabriella Benz AU[address]D [address] [place] [address] Social History Tobacco Use Types Packs/Day Years Used Date Smoking Tobacco: Never Assessed Comments Unknown Sex and Gender Information Value Date Recorded Sex Assigned at Not on file Legal Sex Female 3:18 AM PILLOW CLEANER Gender Identity Not on file Sexual Orientation Not on file documented as of this encounter Plan of Treatment Not on file documented as of this encounter Visit Diagnoses Not on filedocumented in this encounter Care Teams Farmworker [employer] Producing Farm Relationship Specialty Start Date End Date Iker Baum MD [address] [place] [address] PCP - General Internal Medicine 05/26/21 documented as of this encounter
--- OUTSIDE RECORDS SUMMARY | 2025-02-14 17:09 | XMS_ITS | Clinical Summary ---
Author Organization [facility] Address [address] [place] [phone] Phone Care Team Providers Care Hplc Chemist Name Role Phone Iker Baum MD Primary Care Provider + Allergies Active Allergy Reactions Criticality Noted Date Comments Ciprofloxacin Other (See Comments) High 09/28/2022 LEAN MANAGER DOES NOT WANT PT TO TAKE THIS [...] 10 mg 60 Tablet 08/05/2024 4:42 PM AUTOMOTIVE PROJECT ENGINEER Active dextroamphetami ne-amphetamine (ADDERALL) 5 mg tablet Take 1 Tablet (5 mg) by mouth daily. Max Daily Amount: 5 mg 30 Tablet 01/24/2025 1:05 PM CDT Active Active Problems Problem Noted Date Diagnosed Date Tingling in extremities 01/28/2022 Myofascial pain syndrome 01/28/2022 Occipital neuralgia of left side 01/28/2022 Moderate depressive disorder 01/28/2022 Encounters Date Type Department Care Team Description 01/23/2025 External Device Data STL ABSTRACTION Provider, Abstract 12/28/2024 External Device Data STL ABSTRACTION Provider, Abstract 12/28/2024 External Device Data STL ABSTRACTION Provider, Abstract 12/27/2024 External Device Data STL ABSTRACTION Provider, Abstract 12/26/2024 External Device Data STL ABSTRACTION Provider, Abstract 11/21/2024 External Device Data STL ABSTRACTION Provider, [...] on file Legal Sex Female 3:18 AM AUTOMOTIVE PROJECT ENGINEER Gender Identity Not on file Sexual Orientation [...] 2:13 PM CDT Height 167.6 cm (5' 6) 06/11/2021 2:13 PM CDT Body Mass Index 23.82 06/11/2021 2:13 PM CDT Plan of Treatment Health Maintenance Due Date Last Done Comments CHLAMYDIA SCREENING (ANNUAL) 11-24 YEARS 2015 HPV VACCINES (1 - 3-dose series) 2019 COVID-19 Vaccine (2023-2 5 season) 2024 08/31/2021, 08/10/2021 INFLUENZA VACCINE (#1) 2025 DTAP/TDAP/TD VACCINES (7 - T d or Tdap) 04/18/2025 04/18/2015, 12/23/2009, 01/06/2006, Additional history exists HEPATITIS B VACCINES Completed 2004, 2004, 2004, Additional history exists Insurance [place] [id number] RX [facility] [employer] [place] [id number] Care Teams Hplc Chemist Relationship Specialty Start Date End Date Iker Baum MD [address] [place] [address] PCP - General Internal Medicine 05/26/21
--- OUTSIDE RECORDS SUMMARY | 2025-02-14 17:09 | XMS_ITS | Clinical Summary ---
Author Organization [facility] [employer] Address [address] [facility] [place] [address] Care Team Providers Care Veneer Clipper Helper Name Role Phone Iker Baum MD Primary Care Provider [phone] Source Comments [facility],non-owned Affiliates and Associated Physician Practices is amultiple site organization consisting of ambulatory clinics and hospital sitesin [place], [place], [place] and [place]. This disclosure is being madepursuant to the Care Everywhere program and may not contain all information available regarding this patient. Last updated 18.[facility] Allergies No known active allergies Medications * Be aware that medications may not be up to date on this document. Alwaysverify current medications with the patient. Vitamin D, Cholecalciferol , 1000 UNITS Take 1 Tab by mouth every 7 days Active rizatriptan, disintegrating, (MAXALT VEGETABLE PACKER) 5 MG tablet Take 5 mg by [...] 11/19/2016 Immunizations Immunization Administration Dates Next Due Cov1calendar primary Monoval ent 12+ yr 0.3ml 08/31/2021 Covid Proxeon primary monoval ent 12+ yr 0.3mL Purple [...] Comments Blood Pressure 112/70 06/16/2022 3:30 PM TYING MACHINE OPERATOR LUMBER Pulse 88 06/16/2022 3:30 PM TYING MACHINE OPERATOR LUMBER Temperature 36.7 C (98.1 F) 06/16/2017 3:13 PM TYING MACHINE OPERATOR LUMBER Respiratory Rate 20 06/16/2022 3:30 PM TYING MACHINE OPERATOR LUMBER Oxygen Saturation 98% 06/16/2017 3:13 PM TYING MACHINE OPERATOR LUMBER Inhaled Oxygen Concentration - - Weight 68.9 kg (151 lb 14.4 oz) 06/16/2022 3:30 PM TYING MACHINE OPERATOR LUMBER Height 172.4 cm (5' 7.87) 06/16/2022 3:30 PM CS T Body Mass Index 23.18 06/16/2022 3:30 PM TYING MACHINE OPERATOR LUMBER Plan of Treatment Health Maintenance Due Date Last Done Comments HIV SCREENING 2019 HPV VACCINE (1 - 3-dose series) 2019 CHLAMYDIA/GONORRHEA SCREENING 2020 MENINGOCOCCAL (Group B) VACCINE SHARED DECISION-MAKING (1 of 2 - Standard) 2020 HEPATITIS C SCREENING 05/09/2022 COVID-19 VACCINE ( season) 2024 08/31/2021, 08/10/2021 DEPRESSION SCREENING 08/09/2024 [...] patient's age to complete this topic Insurance SELF PAY NO INSURANCE Member Subscriber Plan / Payer (Ef fective for All Dates) Name:Wilma Worley Member ID:Not on file Relation to Subscriber:Not on file Name:WILMA WORLEY Subscriber ID:Not on file (Home) Address: [address] [place] [address] Payer ID:Not on file Group ID:Not on file Type:Self Pay Address: [facility] Member Subscriber Plan / Payer ( fective 2016-Present) Name:Wilma Worley Relation to Subscriber:Child Name:ROBERT WORLEY Date of :1966 (Home) (Work) Address: [address] [place] [address] Payer ID:[id number] (NAIC) Type:HMO Address: [id number] [place] [id number] [facility] Care Teams Veneer Clipper Helper Relationship Specialty Start Date End Date Iker Baum MD [address] [place] [phone] PCP - General Internal Medicine 01/20/22
--- OUTSIDE RECORDS SUMMARY | 2025-02-14 17:09 | XMS_ITS | Encounter Summary ---
Author Organization [facility] Address [address] [place]: [place] [address] Care Team Providers Care Patternmaker Plaster Name Role Phone Iker Baum MD Primary Care Provider + Encounter Details Date Type Department Care Team (Late st Contact Info) Description 2004 Inpatient Historical Char Campo MD NO ADDRESS ON FILE Sandi Rogers MD [address] [place] [address] [facility]DELIVERY (Primary Dx) Social History Tobacco Use Types Packs/Day Years Used Date Smoking Tobacco: Never Assessed Comments Unknown Sex and Gender Information Value Date Recorded Sex Assigned at Not on file Legal Sex Female 3:18 AM EYEGLASS CUTTER Gender Identity Not on file Sexual Orientation Not on file documented as of this encounter Plan of Treatment Not on file documented as of this encounter Visit Diagnoses Diagnosis Twin, mate liveborn, born in hospital, delivered by delivery- Primary documented in this encounter Care Teams Patternmaker Plaster Relationship Specialty Start Date End Date Iker Baum MD [address] [place] [address] PCP - General Internal Medicine 05/26/21 documented as of this encounter
== END 2025-02-14 17:06 | disposition home or self-care (01) ==
PROVIDERS: PCP Internal Medicine; Visit Provider Internal Medicine
DX: R05.3 Chronic cough (principal)
CPT/HCPCS: 71046

== ENCOUNTER 2025-04-02 09:00 | Outpatient (CLI) | payer OTHER, SELFPAY ==
--- OUTSIDE RECORDS SUMMARY | 2024-09-29 06:10 | XMS_ITS ---
Author Organization [facility] Address [address] [place] [address] Care Team Providers Care Roadability Machine Operator Name Role Phone Claire Rowan Primary Care Provider REASON FOR VISIT f/u chico Encounters Encounter Location Date Provider Diagnosis [facility] - Claire Rowan [address] [place] [address] 09/29/2024 Claire Rowan Plan Of Treatment No Information Progress Notes * Wilma WORLEYDOB:2005 (19 yo F)Acc No.[id number]:09/29/2024 Progress Notes Patient: Wilma ZHOU Provider: Nam Rowan MD :2005 A ge:19 Y S ex:Female Date:09/29/2024 Address:[address] [place] [address] Nam Gabriel [id number] Subjective: * Chief Complaints: * 1 . F/u chico. * Medical History: Objective: * Vitals: Assessment: Plan: * Treatment: * Billing Information: * Visit Code: * Procedure Codes: * Electronic signature of Geovanny Rowan MD on 04/02/2025 at 03:37 AM CDT Sign off status: Pending * Provider: Nam Rowan MD Date: 09/29/2024 Generated for Yasmeen pisano/Keren/eTransmitting on: 04/02/2025 03:37 AM CDT
--- NOTE | ~2025-04-02 | XR_ITS ---
XR abdomen/kub 1V 04/02/2025 09:20 INDICATION: Urinary tract infection TECHNIQUE: KUB COMPARISON: None FINDINGS: Bowel gas pattern is normal. There are cholecystectomy clips. There is no evidence of free air, mass, organomegaly, ascites or obstruction. No abnormal calculi are seen. The bones appear intact. IMPRESSION: 1: No acute abdominal abnormality identified. Reviewed, dictated and finalized at location O.
--- OUTSIDE RECORDS SUMMARY | 2025-04-02 09:38 | XMS_ITS | Patient Health Record ---
Author Organization [employer] [facility] Address [address] [address] Care Team Providers Care Drafter Commercial Name Role Phone Claire Rowan Primary Care Provider Allergies Allergen (clinical drug ingredient) Drug/Non Drug Allergy documented on EMR Reaction Allergy Type Onset Date Status Dust Mite Mixed Allergen Ext Unknown Drug Allergy Active Fragrances Unknown Allergy Active Cats Unknown Allergy Active Results Component Value Reference Range Notes ACTH, PLASMA (Not yet review ed by provider) Interpretation: Performing Lab:ORT[facility], [facility], [address] [facility] , [place], [address] Bijan Gracia M.D.,PhD Notes/Report: FASTING:YES FASTING: YES THYROID PEROXIDASE ANTIBODIE S (Not yet reviewed by provider) Interpretation: Performing Lab:CB, [facility], [address] [place] [address], [address] [place] Notes/Report: FASTING:YES FASTING: YES THYROID PEROXIDASE ANTIBODIES 1 <9 IU/mL TESTOSTERONE, FREE (DIALYSIS ) AND TOTAL,MS (Not yet reviewed by provider) Interpretation: Performing Lab:Z3E, [facility], [address] [place] [address], [address], [place], [address] Nichelle Levy MD,PhD Notes/Report: FASTING:YES FASTING: YES TESTOSTERONE, TOTAL, MS 35 2-45 ng/dL For additional information, please refer to https://education.[employer].com/faq/HMH478 (This link is being provided for informational/educational purposes only.) (Note) This test was developed and its analytical performance characteristics have been determined by [employer]. It has not been cleared or approved by the FDA. This assay has been validated pursuant to the CLIA regulations and is used for clinical purposes. TESTOSTERONE, FREE 8 0.1-6.4 pg/mL (Note) This test was developed and its analytical performance characteristics have been determined by [employer]. It has not been cleared or approved by the FDA. This assay has been validated pursuant to the CLIA regulations and is used for clinical purposes. [facility] [place] [facility] [address] [address],[address] [facility] [address] Nichelle Levy MD, PhD COMPREHENSIVE METABOLIC [facility] L Reviewed date:09/09/2024 05:35:28 PM Interpretation: Performing Lab:[facility], [address] [place], [address] Andie Burnett MD Notes/Report: FASTING:YES FASTING: YES VITAMIN D, 25-HYDROXY, LC/MS /MS Reviewed date:09/09/2024 05:35:28 PM Interpretation: Performing Lab:[facility], [address], [place], [address] Andie Burnett MD Notes/Report: FASTING:YES FASTING: YES T3, FREE Reviewed date:09/09/2024 05:35:28 PM Interpretation: Performing Lab:[facility], [address], [place], [address] Andie Burnett MD Notes/Report: FASTING:YES FASTING: YES CORTISOL, TOTAL Reviewed date:09/09/2024 05:35:28 PM Interpretation: Performing Lab:[facility], [address], [place], [address] Andie Burnett MD Notes/Report: FASTING:YES FASTING: YES DHEA SULFATE Reviewed date:09/09/2024 05:35:28 PM Interpretation: Performing Lab:[facility], [address], [place], [place], [address] Andie Burnett MD Notes/Report: FASTING:YES FASTING: YES FERRITIN Reviewed date:09/09/2024 05:35:28 PM Interpretation: Performing Lab:KS, [facility], [address], [place], [address] Andie Burnett MD Notes/Report: FASTING:YES FASTING: YES HEMOGLOBIN A1c Reviewed date:09/09/2024 05:35:28 PM Interpretation: Performing Lab[facility], [address] [place], [address] KarenArgenis Burnett Notes/Report: FASTING:YES FASTING: YES INSULIN Reviewed date:09/09/2024 05:35:28 PM Interpretation: Performing Lab:[facility], [address], [place], [address] Andie Burnett MD Notes/Report: FASTING:YES FASTING: YES MAGNESIUM Reviewed date:09/09/2024 05:35:28 PM Interpretation: Performing Lab:[facility], [address], [place], [address] Andie Burnett MD Notes/Report: FASTING:YES FASTING: YES CBC (INCLUDES DIFF/PLT) Reviewed date:09/09/2024 05:35:28 PM Interpretation: Performing Lab:[facility], [address], [place], [address] Andie Burnett MD Notes/Report: FASTING:YES FASTING: YES VITAMIN B12/FOLATE, SERUM PA GERARD Reviewed date:09/09/2024 05:35:28 PM Interpretation: Performing Lab:[facility], [address], [place], [address] Andie Burnett MD Notes/Report: FASTING:YES FASTING: YES IRON AND TOTAL IRON BINDING CAPACITY Reviewed date:09/09/2024 05:35:28 PM Interpretation: Performing Lab:[facility], [address], [place], [address] Andie Burnett MD Notes/Report: FASTING:YES FASTING: YES LIPID PANEL Reviewed date:09/09/2024 05:35:29 PM Interpretation: Performing Lab:[facility], [address], [place], [address] Andie Burnett MD Notes/Report: FASTING:YES FASTING: YES T4, FREE Reviewed date:09/09/2024 05:35:29 PM Interpretation: Performing Lab:[facility], [address] [facility], [place], [address] Andie Burnett MD Notes/Report: FASTING:YES FASTING: YES TSH Reviewed date:09/09/2024 05:35:29 PM Interpretation: Performing Lab:[facility], [address] [facility], [place], [address] Andie Burnett MD Notes/Report: FASTING:YES FASTING: YES DEXAMETHASONE (Not yet revie wed by provider) Interpretation: Performing Lab:[facility],, [address] [place], [address] Denisha Pinon MD,PhD,RAUL Notes/Report: DEXAMETHASONE 155 Reference Ranges for Dexamethasone: Baseline: Less than 20 ng/dL 1 mg dexamethasone overnight: 180-550 ng/dL (8:00-10:00 AM) This test was developed and its analytical performance characteristics have been determined by [employer]. It has not been cleared or approved by FDA. This assay has been validated pursuant to the CLIA regulations and is used for clinical purposes. CORTISOL, TOTAL (Not yet rev iewed by provider) Interpretation: Performing Lab:JORGE [facility], [address] [place] [address], [address] [place] Notes/Report: Reason For Referral No [...] Status Risk Notes Problem Vitamin D deficiency (88845883) Vitamin D deficiency, unspecified (E55.9) Active confirmed Problem Obesity, unspecified (E66.9) Active confirmed Problem Non-toxic goiter (668537059) Nontoxic goiter, unspecified (E04.9) Active confirmed Problem Polycystic ovary syndrome (disorder) (496513725) Polycystic ovarian syndrome (E28.2) Active confirmed Vital Signs Heart Rate 90 /min 08/25/2024 SpO2: 98% Blood pressure diastolic 75 mm Hg 08/25/2024 SpO 2: 98% Height 66 in 08/25/2024 SpO2: 98% Blood pressure systolic 128 mm Hg 08/25/2024 SpO2 : 98% Weight 172.6 lbs 08/25/2024 SpO2: 98% BMI 27.86 kg/m2 08/25/2024 SpO2: 98% Encounters Encounter Location Date Provider Diagnosis [facility] [address] [place] [address] 08/25/2024 Claire [facility] Polycystic ovarian syndrome E28.2 ; Abnormal weight gain R63.5 ; Overweight E66.3 ; Vitamin D deficiency, unspecified E55.9 ; Encounter for screening for lipoid disorders Z13.220 ; Other fatigue R53.83 ; Nontoxic goiter, unspecified E04.9 ; Obesity, unspecified E66.9 and Dietary counseling and surveillance Z71.[address] [facility] Claire [facility] [address] [place] [address] 09/29/2024 Claire Rowan Assessments Encounter Date Diagnosis [...] lab resultsConsider recommending Purely Holistic supplement from [employer] (soy-free, GMO-free, [id number]) based on lab results Suspected HypercortisolismOrder dexamethasone [...] and potential iodine deficiencySchedule thyroid ultrasound at [place] for heterogeneity and inflammation Follow-up:Schedule [...] procedures, referring and communicating with other health animal caretaker, documenting clinical information in the electronic or [...] Insured Coverage Start Date Coverage End Date [facility] [address] [place] [address] [id number] Wilma Encanracion Self - patient is the insured Medical (General) History Medical History History ICD Code PCOS MCAS
--- OUTSIDE RECORDS SUMMARY | 2025-04-02 09:38 | XMS_ITS | Clinical Summary ---
Author Organization [facility] [employer] Address [address] [place] [address] Care Team Providers Care Lining Ironer Name Role Phone Iker Baum MD Primary Care Provider [phone] Source Comments [facility],non-owned Affiliates and Associated Physician Practices is amultiple site organization consisting of ambulatory clinics and hospital sitesin [place], [place], [place] and [place]. This disclosure is being madepursuant to the Care Everywhere program and may not contain all information available regarding this patient. Last updated 18.[facility] Allergies No known active allergies Medications * Be aware that medications may not be up to date on this document. Alwaysverify current medications with the patient. Vitamin D, Cholecalciferol , 1000 UNITS Take 1 Tab by mouth every 7 days Active rizatriptan, disintegrating, (MAXALT WORSHIP LEADER) 5 MG tablet Take 5 mg by [...] 11/19/2016 Immunizations Immunization Administration Dates Next Due CovCustomInk primary Monoval ent 12+ yr 0.3ml 08/31/2021 Covid Healthy Harvest primary monoval ent 12+ yr 0.3mL Purple [...] Comments Blood Pressure 112/70 06/16/2022 3:30 PM GEAR CUTTING MACHINE OPERATOR Pulse 88 06/16/2022 3:30 PM GEAR CUTTING MACHINE OPERATOR Temperature 36.7 C (98.1 F) 06/16/2017 3:13 PM GEAR CUTTING MACHINE OPERATOR Respiratory Rate 20 06/16/2022 3:30 PM GEAR CUTTING MACHINE OPERATOR Oxygen Saturation 98% 06/16/2017 3:13 PM GEAR CUTTING MACHINE OPERATOR Inhaled Oxygen Concentration - - Weight 68.9 kg (151 lb 14.4 oz) 06/16/2022 3:30 PM GEAR CUTTING MACHINE OPERATOR Height 172.4 cm (5' 7.87) 06/16/2022 3:30 PM CS T Body Mass Index 23.18 06/16/2022 3:30 PM GEAR CUTTING MACHINE OPERATOR Plan of Treatment Health Maintenance Due Date Last Done Comments HIV SCREENING 2019 HPV VACCINE (1 - 3-dose series) 2019 CHLAMYDIA/GONORRHEA SCREENING 2020 MENINGOCOCCAL (Group B) VACCINE SHARED DECISION-MAKING (1 of 2 - Standard) 2020 HEPATITIS C SCREENING 05/09/2022 COVID-19 VACCINE ( season) 2024 08/31/2021, 08/10/2021 DEPRESSION SCREENING 08/09/2024 INFLUENZA VACCINE (#1) 2025 DTAP/TDAP/TD VACCINES (7 - Td or [...] on file (Home) Address: [address] [place] [address] Payer ID:Not on file Group ID:Not on file Type:Self Pay Address: [facility] Member Subscriber Plan / Payer ( fective 2016-Present) Name:Wilma Worley Relation to Subscriber:Child Name:ROBERT WROLEY Date of :1966 (Home) (Work) Address: [address] [place] [address] Payer ID:[id number] (NAIC) Type:HMO Address: [id number] [place] [id number] [facility] Care Teams Lining Ironer Relationship Specialty Start Date End Date Iker Baum MD [address] [place] [phone] PCP - General Internal Medicine 01/20/22
--- OUTSIDE RECORDS SUMMARY | 2025-04-02 09:38 | XMS_ITS | Clinical Summary ---
Author Organization [facility] Address [address] [place] [id number] Care Team Providers Care Salesperson Parts Name Role Phone Iker Baum MD Primary Care Provider [phone] Allergies Active Allergy Reactions Criticality Noted Date Comments Ciprofloxacin Hcl Hives High 02/20/2025 Medications topiramate (TOPAMAX) 50 mg tablet 06/30/20 19 Active norethindrone (MICRONOR) 0.35 mg tabletIndications : Contraception Take one pill by mouth every day on time 84 tablet 3 03/11/20 20 Active dextroamphetamine -amphetamine XR (ADDERALL XR) 10 mg 24 hr capsule Take by mouth daily 07/29/20 20 Active UNABLE TO FIND Take 1 each by mouth daily Med Name: Actalin Active Motegrity 2 mg tablet TAKE 1 TABLET BY MOUTH EVERY DAY 30 tablet 07/09/20 22 Active Nurtec ODT tablet,disintegra ting 07/09/20 22 Active estradioL (Estrace) 2 mg tabletIndications :Irregular Menstrual Periods Take 1 tablet (2 mg total) by mouth daily 30 tablet 03/20/20 25 025 Active estradioL (ESTRACE) 2 mg tabletIndications :Abnormal uterine bleeding TAKE 1 TABLET BY MOUTH EVERY DAY 30 tablet 03/20/20 25 Active estradioL (Estrace) 2 mg tabletIndications :Abnormal Uterine Bleeding Take 1 tablet (2 mg total) by mouth daily 90 tablet 02/21/20 25 025 Discontinued Active Problems Problem Noted Date Diagnosed Date [...] (03/23/2018): Added automatically from request for surgery [id number] Encounters Date Type Department Care Team Description 03/20/2025 11:30 AM CDT Telemedicine [facility] Reproductive Endocrinology [address] [place] [phone] Lisa Jones MD Irregular bleeding (Primary Dx) 03/19/2025 Telephone [facility] Reproductive Endocrinology [address] [place] [phone] Lisa Jones MD VR/looking for MRI results 03/17/2025 1:53 PM CDT - 03/17/2025 11:59 PM CDT Hospital Encounter [facility] [address] [place] [phone] Lisa Jones MD Elevated prolactin level Discharge Disposition: Discharge to home or self care 03/12/2025 Telephone [facility] Reproductive Endocrinology [address] [phone] Lisa Jones MD VR/MRI scheduled/question for nurse 03/12/2025 Orders Only [facility] Reproductive Endocrinology [address] [place] [phone] Lisa Jones MD Elevated prolactin level (Primary Dx) 03/09/2025 Telephone [facility] Endocrin[facility] [address] [place] [phone] Yolie Daigle VSR/ lab results 03/07/2025 Results Follow-Up [facility] Rep[facility]ductive Endocrinology [address] [place] [phone] Shantel Dean RN Prolactin, CBC with auto differential 02/23/2025 Telephone [facility] End[facility] [address] [place] [phone] Yolie Daigle VSR/ lab work 02/23/2025 Orders Only [facility] Reproductive Endocrinology [address] [place] [phone] Yolie Daigle PCOS (polycystic ovarian syndrome) (Primary Dx) 02/20/2025 12:40 PM CDT Telemedicine [facility] Reproductive Endocrinology [address] [place] [phone] Lisa Jones MD Abnormal uterine bleeding (Primary Dx); PCOS (polycystic ovarian syndrome) 02/16/2025 Telephone [facility] Rep[facility]ductive Endocrinology [address] [place] [phone] Yolie Daigle VSR/ Exam from Last 3 Months Surgical History Surgery Date Site/Laterality Comments DENTAL [...] PCOS (polycystic ovarian syndrome) on Metformin per elementary education tutor COVID-19 Unvaccinated As of 01/16 Family History [...] on file Legal Sex Female 11:29 PM CLIENT SUPPORT ASSOCIATE Gender Identity Female 02/18/2021 2:48 PM CDT [...] Comments Blood Pressure 125/81 09/07/2022 1:58 PM CLIENT SUPPORT ASSOCIATE Pulse 85 09/07/2022 1:58 PM CLIENT SUPPORT ASSOCIATE Temperature 36.5 C (97.7 F) 02/25/2021 8:14 AM CDT Respiratory Rate 16 01/20/2021 3:00 PM CDT Oxygen Saturation 98% 09/07/2022 1:5 8 PM CLIENT SUPPORT ASSOCIATE Inhaled Oxygen Concentration - - Weight 70.3 kg (155 lb) 03/17/2025 2:05 PM CDT PATIENT REPORTED WEIGHT Height 167.6 cm (5' 6) 03/17/2025 2:05 PM CDT Body Mass Index 25.02 03/17/2025 2:05 PM CDT Plan of Treatment Health Maintenance Due Date Last Done Comments Depression Screening 2004 Hepatitis C Screening 2004 HPV Vaccines (1 - 3-dose series) 2019 Meningococcal B Vaccine (1 o f 2 - Standard) 2020 Regular Well Visit/Exam 18-64 2022 Covid-19 Vaccine (3 - 2023-2 5 season) 2024 08/31/2021, 08/10/2021 Influenza Vaccine (#1) 2025 DTaP/Tdap/Td Vaccine (7 - Td or Tdap) 04/18/2025 04/18/2015, 12/23/2009, 01/06/2006, Additional history exists Hepatitis B Screening Completed 2004 , 2004, 2004, Additional history exists Pneumococcal vaccine <65 Completed 006, 2004, 2004, Additional history exists Varicella Vaccines Completed 02/11/2016, 12/23/2009 Meningococcal Vaccine Completed 02/18/2022, 016 Procedures Procedure Name Priority Date/Time Associated Diagnosis Comments MRI BRAIN W WO CONTRAST (PITUITARY) Schedule Routine, Read Routine (OP Routine) 03/17/2025 3:10 PM CDT Elevated prolactin level PROLACTIN Routine 03/08/2025 8:00 AM CDT Hyperprolactinem ia CBC WITH AUTO DIFFERENTIAL Routine 03/06/2025 8:01 AM CDT PCOS (polycystic ovarian syndrome) 17 HYDROXYPROGESTERONE Routine 8:01 AM CDT PCOS (polycystic ovarian syndrome) ANTIMULLERIAN HORMONE (AMH) Routine 03/06/2025 8:01 AM CDT PCOS (polycystic ovarian syndrome) PROLACTIN Routine 03/06/2025 8:01 AM CDT PCOS (polycystic ovarian syndrome) from Last 3 Months Results * MRI Brain W WO Contrast (Pituitary) (03/17/2025 3:10 PM CDT) Anatomical Region Laterality Modality Head and Neck N/A Magnetic Resonan ce 03/19/2025 11:0 5 AM CDT Impressions 03/19/2025 11:07 AM CDT No definite MR evidence of a pituitary microadenoma. Dictated by: Anil Turpin M.D. The radiology attending physician has personally reviewed this study, and had reviewed and/or edited this written report and agrees with it. Electronically signed by: Jessee Melchor M.D. Narrative 03/19/2025 11:07 AM CDT EXAMINATION: Magnetic resonance imaging (MRI) of the brain and brainstem without and with contrast. HISTORY: Elevated prolactin TECHNIQUE: Multiplanar multi-weighted MRI of the brain and brainstem was performed without without and with intravenous contrast using the pituitary protocol. This included acquisitions showing dynamic contrast enhancement of the sella turcica in the coronal plane and a post-contrast T1-Stealth sequence. Contrast information: 14 mL Gadoterate Meglumine IV COMPARISON: MR 01/25/2018 FINDINGS: Pituitary and sell is unremarkable. No definite nodule with delayed enhancement. The pituitary infundibulum is midline. The optic chiasm and orbits are normal. The scalp and calvarium are normal. The superior sagittal sinus demonstrates normal venous flow. The corpus callosum is normal in shape and signal intensity. The posterior fossa is unremarkable. The brainstem and craniocervical junction are unremarkable. The ventricles are normal in size and position without evidence of hydrocephalus. Tiny retention cyst in the left maxillary sinus. The visualized portions of the mastoids are unremarkable. The orbits appear normal. Normal flow voids are demonstrated in the carotid arteries and basilar artery. Procedure Note Jessee Melchor MD PhD - 03/19/2025 EXAMINATION: Magnetic resonance imaging (MRI) of the brain and brainstem without and with contrast. HISTORY: Elevated prolactin TECHNIQUE: Multiplanar multi-weighted MRI of the brain and brainstem was performed without without and with intravenous contrast using the pituitary protocol. This included acquisitions showing dynamic contrast enhancement of the sella turcica in the coronal plane and a post-contrast T1-Stealth sequence. Contrast information: 14 mL Gadoterate Meglumine IV COMPARISON: MR 01/25/2018 FINDINGS: Pituitary and sell is unremarkable. No definite nodule with delayed enhancement. The pituitary infundibulum is midline. The optic chiasm and orbits are normal. The scalp and calvarium are normal. The superior sagittal sinus demonstrates normal venous flow. The corpus callosum is normal in shape and signal intensity. The posterior fossa is unremarkable. The brainstem and craniocervical junction are unremarkable. The ventricles are normal in size and position without evidence of hydrocephalus. Tiny retention cyst in the left maxillary sinus. The visualized portions of the mastoids are unremarkable. The orbits appear normal. Normal flow voids are demonstrated in the carotid arteries and basilar artery. IMPRESSION: No definite MR evidence of a pituitary microadenoma. Dictated by: Anil Turpin M.D. The radiology attending physician has personally reviewed this study, and had reviewed and/or edited this written report and agrees with it. Electronically signed by: Jessee Melchor M.D. Lisa Jones MD IMG MRI PROCEDURES Final Res ult * (ABNORMAL) Prolactin (03/08/2025 8:00 AM CDT) Prolactin 49.2(H) 4.8 - 33.4 ng/mL [facility] - Blood 03/08/2025 8:00 AM CDT 03/08/2025 Narrative [facility] - 03/09/2025 4:07 AM CDT Performed at: [address] [place] [id number] Retail Sales Teammate: Juarez Kelley PhD, Phone: [phone] Lisa Jones MD LAB BLOOD ORDERABLES Final R esult [facility] - * CBC with auto differential (03/06/2025 8:01 AM CDT) [facility] WBC 5.7 3.4 - 10.8 x10E3/uL [facility] - 01 RBC 4.60 3.77 - 5.28 x10E6/uL [facility] - 01 Hgb 13.8 11.1 - 15.9 g/dL [facility] - 01 Hct 42.9 34.0 - 46.6 % [facility] - 01 MCV 93 79 - 97 fL [facility] - 01 MCH 30.0 26.6 - 33.0 pg [facility] - 01 MCHC 32.2 31.5 - 35.7 g/dL [facility] - 01 Rdw 12.5 11.7 - 15.4 % [facility] - 01 Platelets 214 150 - 450 x10E3/uL [facility] - 01 Neutrophils pct 50 Not Estab. % [facility] - 01 Lymphs pct 39 Not Estab. % [facility] - 01 Monocytes pct 8 Not Estab. % [facility] - 01 Eosinophils pct 2 Not Estab. % [facility] - 01 Basophil pct 1 Not Estab. % [facility] - 01 Neutrophil abs 2.9 1.4 - 7.0 x10E3/uL [facility] - 01 Lymphs (Absolute) 2.2 0.7 - 3.1 x10E3/uL [facility] - 01 Monocyte abs 0.4 0.1 - 0.9 x10E3/uL [facility] - 01 Eosinophils, abs 0.1 0.0 - 0.4 x10E3/uL [facility] - 01 Basophils, abs 0.1 0.0 - 0.2 x10E3/uL [facility] - 01 Immature Granulocytes 0 Not Estab. % [facility] - 01 Immature Grans (Abs) 0.0 0.0 - 0.1 x10E3/uL [facility] - 01 Blood 03/06/2025 8:01 AM CDT 03/06/2025 Narrative [facility] - 03/07/2025 12:07 AM CDT Performed at: [address] [place] [address] [id number] Retail Sales Teammate: Juarez Kelley PhD, Phone: [phone] us Lisa Jones MD LAB BLOOD ORDERABLES Final R esult Performing Organization Address [facility]/ZIP Co de Phone Number [facility] - * 17-Hydroxyprogesterone (03/06/2025 8:01 AM CDT) Pathologist [facility] 17-OH Progesterone LCMS 55 ng/dL [facility] - Comment: Adult Female Follicular 15 - 70 Luteal 35 - 290 Blood 03/06/2025 8:01 AM CDT 03/06/2025 Narrative [facility] - 03/12/2025 7:09 PM CDT Test(s) 801104-79-AR Progesterone LCMS was developed and its performance characteristics determined by [employer]. It has not been cleared or approved by the Food and Drug Administration. Performed at: 01 - [address] [id number] Retail Sales Teammate: Estephanie Bird MD, Phone: [phone] Lisa Jones MD LAB BLOOD ORDERABLES [facility] Performing Organization Address [facility] Co de Phone Number [facility] - * Antimullerian hormone (AMH) (03/06/2025 8:01 AM CDT) [facility] Anti-Mullerian Hormone (AMH) 5.82 ng/mL [facility] - Comment: For assays employing antibodies, the possibility exists for interference by heterophile antibodies in the samples.1 1.Giselle Fonseca. Interferences in Immunoassays - still a threat. Clin. Chem. 2000; 46: 2101-5886. This test was developed and its performance characteristics determined by [employer]. It has not been cleared or approved by the Food and Drug Administration. Reference Range: Females 20 - 25y: 1.23 - 11.51 Median 4.70 AMH concentrations of >= 1.06 ng/mL is correlated with a better response to ovarian stimulation, produced more retrievable oocytes and higher odds of live according to Charo et al. Fertility and Sterility. 2010: 94:8853-6538. The current AMH test method correlates with the study method with a slope of 0.94. Females at risk of ovarian hyperstimulation syndrome or polycystic ovarian syndrome (PCOS) may exhibit elevated serum AMH concentrations. AMH levels from PCOS patients may be 2 to 5 fold higher than age-appropriate reference interval values. Granulosa cell tumors of the ovary may secrete AMH along with other tumor markers. Elevated AMH is not specific for malignancy, and the assay should not be used exclusively to diagnose or exclude an AMH-secreting ovarian tumor. Blood 03/06/2025 8:01 AM CDT 03/06/2025 Narrative [facility] - 03/09/2025 1:07 AM CDT Performed at: 01 - [facility] [address] [place] [address] [id number] Retail Sales Teammate: Dequan Ruiz MD, Phone: [phone] Lisa Jones MD LAB BLOOD ORDERABLES Final R esult Performing Organization Address [facility] Co de Phone Number [facility] - 01 * (ABNORMAL) Prolactin (03/06/2025 8:01 AM CDT) Pathologist [facility] Prolactin 41.6(H) 4.8 - 33.4 ng/mL [facility] - 01 Blood 03/06/2025 8:01 AM CDT 03/06/2025 Narrative [facility] - 03/07/2025 4:07 AM CDT Performed at: [facility] [address] [id number] Retail Sales Teammate: Juarez Kelley PhD, Phone: [phone] Lisa Jones MD LAB BLOOD ORDERABLES Final R esult [facility] - 01 from Last 3 Months Insurance [facility] CHOICE PLUS [facility] CHOICE PLUS [facility] CHOICE PLUS [facility] CHOICE PLUS [facility] CHOICE PLUS [facility] CHOICE PLUS [facility] CHOICE PLUS Care Teams Salesperson Parts Relationship Specialty Start Date End Date Iker Baum MD [address] [place] [address] PCP - General Internal Medicine 09/01/19
== END 2025-04-02 09:01 | disposition home or self-care (01) ==
PROVIDERS: PCP Internal Medicine; Visit Provider Internal Medicine
DX: N39.0 Urinary tract infection, site not specified (principal); R10.9 Unspecified abdominal pain; R50.9 Fever, unspecified
CPT/HCPCS: 74018